=== PATIENT | female | born 1950 | race Caucasian/White ===

== ENCOUNTER → 2017-09-06 11:25 | Outpatient (CLI) | payer MEDICARE, SELFPAY ==
[2017-09-06 13:15] LABS: Absolute Lymphocyte Count 2.05 X10^3/ul (0.83-4.51); Absolute Neutrophil Count 5.2 X10^3/uL (2.0-7.7); Basophil# 0.04 X10^3/uL; Basophil% 0.5 % (0-1); Eosinophil# 0.55 X10^3/uL; Eosinophils% 6.5 % (0-5); Hematocrit 36.6 % (37-47); Hemoglobin 12.2 g/dl (12.0-15.0); Lymphocyte # 2.05 X10^3/ul (4.0); Lymphocyte % 24.3 % (19-41); Mean Corp Hgb Conc 33.3 g/gl (32-36); Mean Corpuscular Volume 89.9 fL (81-99); Monocyte# 0.61 X10^3/uL; Monocyte% 7.2 % (0-10); Neutrophil # 5.17 X10^3/uL (2.7-7.7); Neutrophil % 61.3 % (47-70); POSITIVE COUNT NO; POSITIVE DIFFERENTIAL NO; POSITIVE MORPHOLOGY NO; Platelet Count 349 K/mm3 (150-450); RBC Distribution Width CV 13.7 % (11.6-14.6); RBC Distribution Width SD 44.7 fl (35.1-43.9); Red Blood Count 4.07 M/mm3 (4.2-5.4); White Blood Count 8.4 K/mm3 (4.4-11.0)
[2017-09-06 13:32] LABS: Vitamin D,25 Hydroxy 19.4 ng/mL (29.95-100.01)
[2017-09-06 13:53] LABS: ALB/GLOB Ratio 0.7 RATIO (0.9-2.4); AST(SGOT) 25 U/L (15-37); Alanine Aminotransfer ALT/SGPT 25 U/L (13-56); Albumin, Serum 2.7 g/dL (3.2-5.0); Alkaline Phosphatase 98 U/L (45-117); Anion Gap 9 (5-15); BUN 31 mg/dL (7-18); BUN/Creat Ratio 13.4 RATIO (10-20); Calcium,Total 8.7 mg/dL (8.5-10.1); Chloride 107 mmol/L (98-107); Creatinine, Serum 2.31 mg/dL (0.55-1.02); EST Glomerular Filtration Rate 22 mL/min (>60); Est Glom Filt Rate - Afr Amer 27 mL/min (>60); Globulin 4.1 g/dL (2.2-4.2); Glucose 167 mg/dL (74-106); Potassium 4.9 mmol/L (3.5-5.1); Protein, Total 6.8 g/dL (6.4-8.2); Sodium Level 139 mmol/L (136-145); Thyroid Stim Hormone (TSH) 3.16 uIU/mL (0.358-3.74)
== END ==
PROVIDERS: Family Provider Family Medicine Geriatric Medicine; PCP Family Medicine Geriatric Medicine; Visit Provider Family Medicine Geriatric Medicine
DX: E11.9 Type 2 diabetes mellitus without complications (principal); E55.9 Vitamin D deficiency, unspecified; I10 Essential (primary) hypertension
CPT/HCPCS: 36415; 80053; 82306; 84443; 85025

== ENCOUNTER → 2018-01-01 15:43 | Outpatient (CLI) | payer MEDICARE, SELFPAY ==
[2018-01-01 17:35] LABS: Absolute Lymphocyte Count 2.22 X10^3/ul (0.83-4.51); Absolute Neutrophil Count 7.3 X10^3/uL (2.0-7.7); Basophil# 0.05 X10^3/uL; Basophil% 0.4 % (0-1); Eosinophils% 15.5 % (0-5); Hematocrit 35.2 % (37-47); Hemoglobin 11.3 g/dl (12.0-15.0); Lymphocyte # 2.22 X10^3/ul (4.0); Lymphocyte % 18.1 % (19-41); Mean Corp Hgb Conc 32.1 g/gl (32-36); Mean Corpuscular Hgb 28.9 pg (27.0-32.0); Mean Platelet Vol. 8.7 fl (6.2-12.0); Monocyte# 0.83 X10^3/uL; Monocyte% 6.8 % (0-10); Neutrophil # 7.27 X10^3/uL (2.7-7.7); Platelet Count 343 K/mm3 (150-450); RBC Distribution Width CV 13.6 % (11.6-14.6); RBC Distribution Width SD 44.5 fl (35.1-43.9); Red Blood Count 3.91 M/mm3 (4.2-5.4); White Blood Count 12.3 K/mm3 (4.4-11.0)
[2018-01-01 17:40] LABS: POSITIVE COUNT NO; POSITIVE DIFFERENTIAL NO; POSITIVE MORPHOLOGY NO
[2018-01-01 18:01] LABS: Vitamin D,25 Hydroxy 32.7 ng/mL (29.95-100.01)
[2018-01-01 18:30] LABS: ALB/GLOB Ratio 0.6 RATIO (0.9-2.4); AST(SGOT) 28 U/L (15-37); Alanine Aminotransfer ALT/SGPT 19 U/L (13-56); Albumin, Serum 2.5 g/dL (3.2-5.0); Alkaline Phosphatase 93 U/L (45-117); Anion Gap 5 (5-15); BUN 32 mg/dL (7-18); Calcium,Total 8.2 mg/dL (8.5-10.1); Chloride 105 mmol/L (98-107); Creatinine, Serum 2.14 mg/dL (0.55-1.02); EST Glomerular Filtration Rate 24 mL/min (>60); Est Glom Filt Rate - Afr Amer 29 mL/min (>60); Globulin 4.5 g/dL (2.2-4.2); Glucose 136 mg/dL (74-106); Potassium 5.2 mmol/L (3.5-5.1); Sodium Level 137 mmol/L (136-145); Thyroid Stim Hormone (TSH) 2.67 uIU/mL (0.358-3.74)
== END ==
PROVIDERS: Family Provider Family Medicine Geriatric Medicine; PCP Family Medicine Geriatric Medicine; Visit Provider Family Medicine Geriatric Medicine
DX: E11.9 Type 2 diabetes mellitus without complications (principal); E55.9 Vitamin D deficiency, unspecified; I10 Essential (primary) hypertension; N39.0 Urinary tract infection, site not specified
CPT/HCPCS: 36415; 80053; 82306; 84443; 85025; 87086; 87088

== ENCOUNTER → 2018-01-05 15:29 | Outpatient (CLI) | payer MEDICARE, SELFPAY ==
[2018-01-05 16:28] LABS: Anion Gap 13 (5-15); BUN 38 mg/dL (7-18); Calcium,Total 8.2 mg/dL (8.5-10.1); Chloride 106 mmol/L (98-107); Creatinine, Serum 2.38 mg/dL (0.55-1.02); EST Glomerular Filtration Rate 22 mL/min (>60); Est Glom Filt Rate - Afr Amer 26 mL/min (>60); Glucose 111 mg/dL (74-106); Potassium 4.6 mmol/L (3.5-5.1); Sodium Level 140 mmol/L (136-145)
== END ==
PROVIDERS: Family Provider Family Medicine Geriatric Medicine; PCP Family Medicine Geriatric Medicine; Visit Provider Family Medicine Geriatric Medicine
DX: E87.6 Hypokalemia (principal)
CPT/HCPCS: 36415; 80048

== ENCOUNTER → 2018-01-11 14:40 | Outpatient (CLI) | payer MEDICARE, SELFPAY ==
[2018-01-11 17:41] LABS: Protein, Urine (Random) 167.2 mg/dL (<11.9); Protein:Creat Ratio 1995 mg/g CRE (0-200)
== END ==
PROVIDERS: Family Provider Family Medicine Geriatric Medicine; PCP Family Medicine Geriatric Medicine; Visit Provider Internal Medicine Nephrology
DX: E11.21 Type 2 diabetes mellitus with diabetic nephropathy (principal)
CPT/HCPCS: 82570; 84156

== ENCOUNTER → 2018-01-16 13:48 | Outpatient (CLI) | payer MEDICARE, SELFPAY ==
[2018-01-16 16:14] LABS: Albumin, Serum 2.2 g/dL (3.2-5.0); BUN 42 mg/dL (7-18); BUN/Creat Ratio 18.2 RATIO (10-20); Calcium,Total 8.1 mg/dL (8.5-10.1); Chloride 105 mmol/L (98-107); Creatinine, Serum 2.31 mg/dL (0.55-1.02); EST Glomerular Filtration Rate 22 mL/min (>60); Est Glom Filt Rate - Afr Amer 27 mL/min (>60); Glucose 178 mg/dL (74-106); Phosphorus 3.7 mg/dL (2.5-4.9); Potassium 4.4 mmol/L (3.5-5.1); Sodium Level 138 mmol/L (136-145)
== END ==
PROVIDERS: Internal Medicine Nephrology; Family Provider Family Medicine Geriatric Medicine; PCP Family Medicine Geriatric Medicine; Visit Provider Family Medicine Geriatric Medicine
DX: N18.4 Chronic kidney disease, stage 4 (severe) (principal); R10.9 Unspecified abdominal pain; N39.0 Urinary tract infection, site not specified; N17.9 Acute kidney failure, unspecified
CPT/HCPCS: 36415; 74176; 80069; 87077; 87086; 87088

== ENCOUNTER → 2018-01-17 09:08 | Outpatient (CLI) | payer MEDICARE, SELFPAY ==
[2018-01-17 13:09] LABS: International Normalized Ratio 1.1; Prothrombin Time (Protime)PT. 13.7 SECONDS (11.7-14.9)
[2018-01-17 13:10] LABS: Partial Thromboplast Time 33.7 Seconds (24.1-36.2)
[2018-01-17 13:17] LABS: Anion Gap 9 (5-15); BUN 41 mg/dL (7-18); BUN/Creat Ratio 17.5 RATIO (10-20); Calcium,Total 7.9 mg/dL (8.5-10.1); Chloride 108 mmol/L (98-107); Creatinine, Serum 2.34 mg/dL (0.55-1.02); EST Glomerular Filtration Rate 22 mL/min (>60); Est Glom Filt Rate - Afr Amer 27 mL/min (>60); Glucose 240 mg/dL (74-106); Potassium 4.7 mmol/L (3.5-5.1); Sodium Level 137 mmol/L (136-145)
[2018-01-18 11:35] LABS: Cancer Antigen 125 47.2 U/mL (0.0-38.1)
== END ==
PROVIDERS: Family Provider Family Medicine Geriatric Medicine; PCP Family Medicine Geriatric Medicine; Visit Provider Family Medicine Geriatric Medicine
DX: Z01.818 Encounter for other preprocedural examination (principal); Z13.89 Encounter for screening for other disorder; N18.3 Chronic kidney disease, stage 3 (moderate)
CPT/HCPCS: 36415; 80048; 85610; 85730; 86304

== ENCOUNTER → 2018-01-19 09:35 | Outpatient (CLI) | payer MEDICARE, SELFPAY ==
--- NOTE | 2018-01-19 10:00 | MRI_ITS ---
STUDY: MRI LUMBAR SPINE WITHOUT CONTRAST REASON FOR EXAM: Female, 67 years old. low back pain radiates into anterior hips x 1 month. TECHNIQUE: Standardized fat and water weighted pulse sequences were obtained in the sagittal and axial planes. COMPARISON: None FINDINGS: T12-L1: Normal endplates. Normal disc height, hydration and morphology. Normal bilateral facet joints. Normal central canal and bilateral lateral recesses. Normal bilateral intervertebral neural foramina. Normal lumbar lordosis. There is no substantial scoliosis. Normal conus medullaris that terminates at the L1 L1-2: There is mild disc space narrowing and endplate spondylosis. There is a mild disc bulge and facet arthropathy without significant central canal or foraminal stenosis. L2-3: Normal endplates. Normal disc height, hydration and morphology. Normal bilateral facet joints. Normal central canal and bilateral lateral recesses. Normal bilateral intervertebral neural foramina. L3-4: There is minimal disc space narrowing and endplate spondylosis. There is a mild disc bulge and facet arthropathy without significant central canal stenosis. There is minimal bilateral foraminal stenosis. L4-5: There is minimal disc space narrowing and endplate spondylosis. There is extensive facet arthropathy with minimal anterolisthesis and mild disc bulge without significant central canal or foraminal stenosis. L5-S1: There is mild disc space narrowing and endplate spondylosis. There is a mild disc bulge with central protrusion and facet arthropathy without significant central canal stenosis. There is mild bilateral foraminal stenosis. Normal visualized sacral ala. Normal visualized paraspinous soft tissue structures. MRI/Spine Lumbar (Routine) IMPRESSION: L4/L5: Facet arthropathy with grade 1 anterolisthesis. Electronically Signed: Jenna Valderrama MD at 11:27 EDT Tel , Service support ,
== END ==
PROVIDERS: Family Provider Family Medicine Geriatric Medicine; PCP Family Medicine Geriatric Medicine; Visit Provider Family Medicine Geriatric Medicine
DX: M54.5 Low back pain (principal); N83.8 Other noninflammatory disorders of ovary, fallopian tube and broad ligament
CPT/HCPCS: 72148; 76830; 76856

== ENCOUNTER → 2018-01-22 07:57 | Outpatient (CLI) | payer MEDICARE, SELFPAY ==
[2018-01-22] VITALS (9 sets, daily range): BP systolic 163–213; BP diastolic 45–122; PULSE 72–90; RESP 15–25; O2SAT 89–100; BMI 31.3
--- NOTE | 2018-01-22 | ASPIGT_PTH ---
PATIENT: SIMEON STAPLETON LOC: CT U#:[id number] AGE/SX: 74/F ROOM: RE01/22/[address]: Dr. 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 See comment. SAFIA:marisol 9/11/18 COMMENT The specimen is evaluated at the time of CT by Dr. Hoover. Immediate Evaluation = Malignant cells present derived from non-small cell carcinoma. The tumor shows extensive necrosis. Immunohistochemistry ([id number]) supports the above diagnosis. Correlation with Clinical, radiologic findings and appropriate follow up are necessary. Case has been reviewed in consultation with Dr. Mas who concurs with the above diagnosis. IDC:AM MICROSCOPIC DESCRIPTION Slides are reviewed. GROSS DESCRIPTION Received in fixative is one container labeled with the patient's name and designated left retro-peritoneum. The specimen consists of multiple irregular fragments of cook soft tissue that in aggregate measure 2 x 0.1 x 0.1 cm. The entire specimen is submitted in one cassette. Two touch imprints are prepared at the time of core biopsy. / SAFIA:marisol 01/22/18 TC:0 CPT: 44072, 02900
--- NOTE | 2018-01-22 | IMM_PTH ---
PATIENT: SIMEON STAPLETON LOC: CT U#:[id number] AGE/SX: 74/F ROOM: RE01/22/[address]: Dr. Nii Mc MD : 1950 BED: DIS: SPEC #: [id number] RECD: 01/23/18 11:04 STATUS: YUNIER REQ #: [id number] KELLY: 01/22/18 00:[address]: Nii Mc Chi DEPT: IMMUNOHISTOCHEMISTRY RECD BY: Radha Villegas Tissues: Retroperitoneum, NOS Procedures: RCC (add) MSH2 (add) MLH-1 (add) MSH6 (add) Anti-PMS2 (add) NAPSIN A (add) CA-125 (add) CK20 (add) CK5-6 (add) CK7 (add) CK8 (add) STEPHENS-2 (add) HEP PAR (add) KI-67 (add) P53 (add) NM (add) TTF1 (add) P40 (add) ER (initial) PHYSICIAN & [address] [address] SPECIMEN INFORMATION: Tissue Source: Left retroperitoneal mass Clinical Info: Left retroperitoneal mass Specimen Number: [id number] CPT code: 89880, 16947 x18 METHODOLOGY: Deparaffinized sections of prefer/formalin-fixed tissue or PAP/DQ stained slides are incubated with monoclonal/polyclonal antibodies/oligonucleotide probes. Localization is made via biotin free immunoperoxidase method. Appropriate controls are performed and reacted as expected. Results on target cell population are indicated in the following table: RESULTS: ANTIBODY / CLONE RESULT ER (6F11) negative NM (1E2) negative CK7 (OV-TL12/30) negative CK8 (82wkqsD40) positive CK20 (KS20.8) positive TTF-1 (8G7G3/1) negative Napsin A (Rabbit Polyclonal) negative HepPar (OCh1E5) negative RCC (PN-15) negative CA125 (OC125) negative CK5-6 (D5 & 1684) negative P40 (BC28) negative COLON CANCER PROFILE (Prognostic Markers) Ki-67 (30-9) positive, high P53 (DO-7) negative MSH2 (25D12) positive MSH6 (44) positive MLH-1 (M1) positive PMS2 (PEO0140) positive STEPHENS-2 (SP21) positive These tests were developed and their performance characteristics determined by [facility]. They may not have been cleared or approved by the U.S. Food and Drug Administration. The FDA has determined that such clearance or approval is not necessary. 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 Clinical correlation is necessary. Result of Microsatellite Instability Study: Negative (no loss of mismatch protein; no microsatellite instability detected). Case has been reviewed in consultation with Dr. Mas who concurs with the above diagnosis. IDC:RALPH SJ:marisol 01/24/18
== END ==
PROVIDERS: Family Provider Family Medicine Geriatric Medicine; PCP Family Medicine Geriatric Medicine; Visit Provider Family Medicine Geriatric Medicine
DX: R59.0 Localized enlarged lymph nodes (principal); M51.86 Other intervertebral disc disorders, lumbar region; E11.22 Type 2 diabetes mellitus with diabetic chronic kidney disease; I12.9 Hypertensive chronic kidney disease with stage 1 through stage 4 chronic kidney disease, or unspecified chronic kidney disease; N18.4 Chronic kidney disease, stage 4 (severe); K59.00 Constipation, unspecified; E11.40 Type 2 diabetes mellitus with diabetic neuropathy, unspecified; Z87.448 Personal history of other diseases of urinary system; Z79.84 Long term (current) use of oral hypoglycemic drugs; Z79.899 Other long term (current) drug therapy
CPT/HCPCS: 49180; 77012; 88172; 88305; 88313; 88341; 88342; 99156; 99157; J7040; A4216

== ENCOUNTER → 2018-01-30 11:58 | Outpatient (CLI) | payer MEDICARE, SELFPAY ==
--- NOTE | 2018-01-30 12:03 | VDLE_ITS ---
Reason For Study: pain, swelling RIGHT LEFT GSV is normal. GSV is normal. CFV is compressible, spontaneous, phasic, CFV is compressible, spontaneous, phasic, competent and demonstrates normal competent, and demonstrates normal augmentation. augmentation. FV is compressible, spontaneous, phasic, FV is compressible, spontaneous, phasic, competent and demonstrates normal competent and demonstrates normal augmentation. augmentation. POP V is compressible, spontaneous, phasic, POP V is compressible, spontaneous, phasic, competent and demonstrates normal competent and demonstrates normal augmentation. augmentation. T/P Trunk is compressible. T/P Trunk is compressible. PTV is compressible. PTV is compressible. RT PerV is compressible. LT PerV is compressible. Interpretation Summary Deep veins of the lower extremities are bilaterally patent and compressible segmentally. There is no evidence of deep vein thrombosis on either side. Valvular competence appears intact within the proximal deep venous systems bilaterally. The greater saphenous veins appear bilaterally patent and compressible segmentally. Ordering Physician: Jayy Alvarez Performed By: Carlo Saldana RVT
== END ==
PROVIDERS: Family Provider Family Medicine Geriatric Medicine; PCP Family Medicine Geriatric Medicine; Visit Provider Internal Medicine Medical Oncology
DX: R22.42 Localized swelling, mass and lump, left lower limb (principal); M79.606 Pain in leg, unspecified
CPT/HCPCS: 93970

== ENCOUNTER → 2018-02-01 16:41 | Outpatient (CLI) | payer MEDICARE, SELFPAY ==
--- NOTE | 2018-02-01 16:51 | CT_ITS ---
STUDY: CT CHEST WITHOUT CONTRAST REASON FOR EXAM: Female, 67 years old. Pelvic pain and swelling, history of uterine mass RADIATION DOSAGE (If Supplied By Facility): CTDIvol = ( 12.76 ) mGy, DLP = ( 423.99 ) mGycm TECHNIQUE: Transaxial imaging was performed without the administration of intravenous contrast material. Individualized dose optimization techniques were used for this CT. COMPARISON: Previous plain films FINDINGS: The soft tissue windows show normal-appearing thyroid gland. There are scattered subcentimeter axillary and mediastinal lymph nodes. There are calcified mediastinal lymph nodes. There are calcified coronary vessels. There are free-flowing bilateral pleural effusions, right greater than left with associated atelectasis. The lung windows show chronic interstitial changes in both lung kumar without an organized infiltrate or suspicious noncalcified mass or nodule. Limited cuts through the upper abdomen do not show a suspicious abnormality. Bony structures show degenerative change with multiple anterior spurs CT/Chest without Contrast IMPRESSION: Free-flowing bilateral pleural effusions with associated atelectasis. Right greater than left. No superimposed infiltrate or suspicious noncalcified mass or nodule. Calcified coronary vessels Scattered subcentimeter axillary and mediastinal lymph nodes. There are calcified mediastinal lymph nodes as well. Degenerative bony changes Electronically Signed: Armaan Sosa MD at 17:54 EDT , Service support ,
[2018-02-01 17:37] LABS: Anion Gap 11 (5-15); BUN 71 mg/dL (7-18); BUN/Creat Ratio 21.3 RATIO (10-20); Calcium,Total 8.1 mg/dL (8.5-10.1); Chloride 103 mmol/L (98-107); Creatinine, Serum 3.34 mg/dL (0.55-1.02); EST Glomerular Filtration Rate 15 mL/min (>60); Est Glom Filt Rate - Afr Amer 18 mL/min (>60); Glucose 163 mg/dL (74-106); Potassium 4.2 mmol/L (3.5-5.1); Sodium Level 134 mmol/L (136-145)
== END ==
PROVIDERS: Internal Medicine Nephrology; Family Provider Family Medicine Geriatric Medicine; PCP Family Medicine Geriatric Medicine; Visit Provider Internal Medicine Medical Oncology
DX: N85.8 Other specified noninflammatory disorders of uterus (principal); R19.09 Other intra-abdominal and pelvic swelling, mass and lump; N17.9 Acute kidney failure, unspecified
CPT/HCPCS: 36415; 71250; 80048

== ENCOUNTER 2018-02-04 20:45 | Inpatient (IN) | payer MEDICARE, SELFPAY ==
[2018-02-04 20:46] VITALS: BP 142/66; PULSE 103; RESP 19; TEMP 36.6; O2SAT 98; BMI 30.4
--- NOTE | 2018-02-04 21:47 | CT_ITS ---
STUDY: CT ABDOMEN AND PELVIS WITHOUT CONTRAST REASON FOR EXAM: Female, 67 years old. Abdominal pain, constipation. RADIATION DOSAGE (If Supplied By Facility): CTDIvol = ( 17.86 ) mGy, DLP = ( 901.29 ) mGycm TECHNIQUE: Transaxial images were obtained from the dome of the diaphragm to the symphysis pubis without oral contrast, and without intravenous contrast. Sagittal and coronal images were reconstructed. Individualized dose optimization techniques were used for this CT. COMPARISON: Pelvic ultrasound January 19, 2018; CT abdomen and pelvis January 16, 2018. FINDINGS: There is a small to moderate-sized dependent right pleural effusion and small left pleural effusion, both increased in size since January 16, 2018. There is subsegmental atelectasis in the adjacent posterior lung bases. The heart size is normal. Very small inferior pericardial effusion or thickening is stable. Atherosclerotic calcification again seen in the coronary arteries. There is decreased attenuation of the liver consistent with steatosis. The portal vein diameter is 13.5 mm. Normal gallbladder and extrahepatic biliary system. Common bile duct diameter near the juan ramon hepatis is 9 mm, then taper normally as it passes through the head of the pancreas. Normal spleen. Normal pancreas. Normal bilateral adrenal glands. There is stable to slightly worsened right hydroureteronephrosis down to the pelvic inlet, and early distention of the left collecting system. No defined focal renal mass or cyst. There is stable moderate stranding of the perinephric tissues. Normal visualized stomach. Normal small intestine. There are several stable colonic diverticula consistent with diverticulosis. There is non-visualization of the appendix. There are central mesenteric lymph nodes ranging from nonspecific subcentimeter size to borderline enlarged. There is stable moderate atherosclerotic calcification of the abdominal aorta proximal iliac arteries, without a demonstrated aneurysm. Normal inferior vena cava. There is stable enlarged retroperitoneal lymph nodes, most prominent in the left periaortic soft tissues. There is mild mural thickening in the dome and left wall of the urinary bladder compared to the right wall or base of the bladder. Normal visualized uterus. The right ovary is 4.95 x 3.55 x 3.5 cm, and contains at least 2 laterally defined low density cystic structures. The larger of these is 3.3 x 3.25 x 2.4 cm. The cysts are by a faintly calcified septation, and a rounded subcentimeter rim calcification is also seen at the anterior margin of the ovary. Left adnexa is unremarkable. There are stranding soft tissue densities of worsened edema or ecchymosis in the subcutaneous tissues of the abdominal and pelvic eaton, most prominent laterally and posteriorly. There is a left-sided inguinal hernia containing adipose tissue. There are stable multilevel degenerative changes of the visualized thoracic spine and lower lumbar spine. Mildly patchy density of the vertebrae could reflect demineralization versus other infiltrating process. CT/Abdomen/Pelvis without Cont IMPRESSION: 1. An expected volume of fecal material, partially opacified by contrast from earlier study, fills the colon. There is diverticulosis without acute articularis. No sign of bowel obstruction. The appendix is not visualized. 2. Retroperitoneal adenopathy again identified. Mesenteric lymph nodes also now range from nonspecific subcentimeter size to borderline enlarged. 3. There is slight worsened right hydroureteronephrosis and minor distention of the left collecting system down to the pelvic inlet. Moderate stranding of the perinephric soft tissues is unchanged. 4. Stable mild mural thickening in the dome and left wall of the urinary bladder, which could reflect regional cystitis or other infiltrative process. 5. Stable complicated cystic structure(s) in the right ovary. The uterus and left ovary are unremarkable. 6. Worsened edema or ecchymosis in the subcutaneous tissues of the abdominal pelvic eaton, most prominent laterally and posteriorly. 7. Worsened bilateral pleural effusions, larger on the right, with subsegmental atelectasis in the adjacent lung bases. There is stable small inferior pericardial effusion or thickening. 8. Atherosclerotic vascular calcifications again noted. No demonstrated aortic aneurysm. 9. Hepatic steatosis. 10. Mildly patchy density of the vertebrae could reflect demineralization versus other infiltrative process. Electronically Signed: Armaan Reyes MD at 23:14 EDT , Service support ,
[2018-02-04] MEDS: Ondansetron 4 MG/2 ML Vial IV (22:05)
[2018-02-04] MEDS: 0.9% Normal Saline 1,000 ML 1000 ML IV (22:05)
[2018-02-04] MEDS: Morphine 4 MG/ML Syringe IV (22:05)
[2018-02-04 22:45] LABS: Absolute Lymphocyte Count 0.62 X10^3/ul (0.83-4.51); Absolute Neutrophil Count 7.2 X10^3/uL (2.0-7.7); Basophil# 0.02 X10^3/uL; Basophil% 0.2 % (0-1); Eosinophil# 0.22 X10^3/uL; Eosinophils% 2.5 % (0-5); Hematocrit 34.2 % (37-47); Hemoglobin 11.3 g/dl (12.0-15.0); Lymphocyte # 0.62 X10^3/ul (4.0); Lymphocyte % 7.2 % (19-41); Mean Corpuscular Hgb 28.6 pg (27.0-32.0); Mean Corpuscular Volume 86.6 fL (81-99); Monocyte# 0.62 X10^3/uL; Monocyte% 7.2 % (0-10); Neutrophil # 7.16 X10^3/uL (2.7-7.7); Neutrophil % 82.8 % (47-70); Platelet Count 433 K/mm3 (150-450); RBC Distribution Width CV 13.1 % (11.6-14.6); Red Blood Count 3.95 M/mm3 (4.2-5.4); White Blood Count 8.7 K/mm3 (4.4-11.0)
[2018-02-04 22:46] LABS: POSITIVE COUNT NO; POSITIVE DIFFERENTIAL NO; POSITIVE MORPHOLOGY NO
[2018-02-04 22:58] LABS: ALB/GLOB Ratio 0.3 RATIO (0.9-2.4); AST(SGOT) 29 U/L (15-37); Alanine Aminotransfer ALT/SGPT 16 U/L (13-56); Albumin, Serum 1.4 g/dL (3.2-5.0); Alkaline Phosphatase 151 U/L (45-117); Anion Gap 10 (5-15); BUN 76 mg/dL (7-18); BUN/Creat Ratio 21.2 RATIO (10-20); Chloride 101 mmol/L (98-107); Creatinine, Serum 3.59 mg/dL (0.55-1.02); EST Glomerular Filtration Rate 13 mL/min (>60); Est Glom Filt Rate - Afr Amer 16 mL/min (>60); Estimated Creatinine Clearance 12.77 ml/min; Globulin 4.6 g/dL (2.2-4.2); Glucose 182 mg/dL (74-106); Lipase 124 U/L (73-393); Potassium 3.7 mmol/L (3.5-5.1); Sodium Level 134 mmol/L (136-145)
[2018-02-04 23:01] VITALS: PULSE 90; RESP 16; O2SAT 97
[2018-02-04] MEDS: proMETHazine 25 MG/ML Syringe 6.25 MG IV (23:02)
--- NOTE | 2018-02-04 23:40 | HP.PCM_ITS ---
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 She presents to the ER because she cant handle the pain anymore. She was recently diagnosed with Stage 4 adenocarcinoma of the colon and retroperitoneal lymphadenopathy. She describes her pain as her uterus and ovary are on fire. She had been scheduled to see an DRAGLINE OPERATOR in [place] prior to the diagnosis of cancer and after she was diagnosed with cancer, she kept her appointment and the OB attempted a speculum exam/pelvic, however she was having too much pain and could not tolerate it. CT abd/pelvis in the ER did not show anything acute other than the cancer. She also has lower extremity edema that was recently worked up and negative for a DVT. She denies any diarrhea, or vomiting, but she does have nausea. At home, she currently only takes Oxycontin BID for her pain control. Past Medical History Past Medical History (Chronic Problems): Chronic Problems (Last Updated 01/30/18 @ 09:59 by Mariia Geller) Hypertension (Chronic) Hypothyroid (Chronic) Hyperlipemia (Chronic) Chronic back pain (Chronic) DM type 2 (diabetes mellitus, type 2) (Chronic) CKD (chronic kidney disease) (Chronic) Medical History: Medical History (Last Updated 01/30/18 @ 09:59 by Mariia Geller) CT guided biopsy Left retroperitoneal lymph node biopsy 01/22/18 [facility] Allergies codeine Allergy (Verified 02/04/18 20:46) Other iodine Allergy (Verified 02/04/18 20:46) Other Penicillins Allergy (Verified 02/04/18 20:46) Hives PAPER TAPE Allergy (Uncoded 02/04/18 20:46) Rash Home Medications: Ambulatory Orders Medication Instructions Recorded Oxycodone CR [Oxycontin] 10 mg PO Q12H 02/04/18 Oxycodone CR [Oxycontin] 10 mg PO TID 02/04/18 Surgical History: Surgical History (Last Updated 01/30/18 @ 09:59 by Mariia Geller) H/O dilation and curettage Z98.890 Surgical History: - - myomectomy, 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: No pertinent 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 Smoking Status: Former smoker Alcohol: None Drugs: None - *Family History Sibling Family History: Family History (Last Updated 01/30/18 @ 10:00 by Mariia Geller) Sister Cancer Father Cancer Grandmother Diabetes History Items: No pertinent history Offspring Family History: Family History (Last Updated 01/30/18 @ 10:00 by Mariia Geller) Sister Cancer Father Cancer Grandmother Diabetes History Items: Cancer - Lymphoma Review of Systems Constitutional: Denies: Chills, Fever, Weight Change HEENT: Denies: Head Aches, Sinus Congestion, Sinus Drainage Cardiovascular: Denies: Chest Pain, Palpitations Respiratory: Denies: Cough, Shortness of breath at rest, Sputum production Gastrointestinal: Reports: Abdominal Pain. Denies: Nausea, Vomiting Genitourinary: Reports: Dysuria Gynecological: Reports: - - Pelvic pain Musculoskeletal: Denies: Joint Pain, Joint Tenderness Skin: Denies: Rash, Wounds Neurological: Denies: Numbness, Tingling, Focal weakness Psychiatric: Denies: Anxiety, Depression Hematologic/ Lymphatic: Denies: Easy Bruising, Easy Bleeding VTE Information - Inpt Only VTE Present on Admission: No - Physical Exam General: Alert, Oriented x3, Cooperative HEENT: Atraumatic, PERRLA, EOMI, Normocephalic Oral: Moist Mucosa Neck: Supple, No JVD Lungs: Clear to auscultation, Normal air movement, No rhonchi, No wheeze, No rales Cardiovascular: Regular rate, Regular Rhythm, Normal S1, Normal S2, No murmurs Abdomen: Soft, Non Tender, Non-Distended, No Hepato-splenomegaly Extremities: Capillary Refill Less than 3 Seconds, Edema - pitting 1+ Skin: No rashes, No breakdown Musculoskeletal: No Tenderness to Palpation of Joints or Extremities Neurological: Neuro grossly intact, Sensory exam intact to light touch and pain Psych/Mental Status: Normal Affect, Appropriate Vital Signs Temp Pulse Resp BP Pulse Ox 97.8 F 90 16 142/66 H 97 02/04/18 20:46 02/04/18 23:01 02/04/18 23:01 02/04/18 20:46 02/04/18 23:01 Oxygen Delivery Method Room Air Weight: 177 lb 3.491 oz Body Mass Index (BMI) 30.4 Finger Stick Blood Glucose 181 Laboratory Tests Past 24 Hrs 02/04/18 02/04/18 22:10 22:10 WBC 8.7 RBC 3.95 L Hgb 11.3 L Hct 34.2 L MCV 86.6 MCH 28.6 MCHC 33.0 RDW 13.1 RDW Differential 42.0 Plt Count 433 MPV 8.0 Immature Gran % (Auto) 0.100 Neut % (Auto) 82.8 H Lymph % (Auto) 7.2 L [place] % (Auto) 7.2 Eos % (Auto) 2.5 Baso % (Auto) 0.2 Absolute Neuts (auto) 7.2 Absolute Lymphs (auto) 0.62 L Total Counted Not Reportable Sodium 134 L Potassium 3.7 Chloride 101 Carbon Dioxide 23.0 Anion Gap 10 BUN 76 H Creatinine 3.59 H Estim Creat Clear Calc 12.77 Est GFR (MDRD) Af Amer 16 L Est GFR (MDRD) Non-Af 13 L BUN/Creatinine Ratio 21.2 H Glucose 182 H Calcium 8.0 L Total Bilirubin 0.30 AST 29 ALT 16 Alkaline Phosphatase 151 H Total Protein 6.0 L Albumin 1.4 L Globulin 4.6 H Albumin/Globulin Ratio 0.3 L Lipase 124 Assessment/Plan All Active Problems (Last Updated 01/30/18 @ 09:59 by Mariia Geller) Abscess and cellulitis (Acute) Back pain (Acute) Vomiting (Acute) Metastatic adenocarcinoma (Acute) 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 Stage 4 adenocarcinoma of the colon/Pelvic/abdominal pain/Nausea - CEA is elevated to 418 and her CA125 was 47 - C/s to Dr Alvarez who is her oncologist - C/w her OXycontin BID and add oxycodone 5 mg q4 prn - IVF@125 - Unsure of the benefit at this time for a OB consult if she cannot tolerate a pelvic exam - Bowel regimen with colace and miralax - Phenergan for the nausea 2. Right Hydronephrosis/CKD4 - Appears slightly worse on todays CT - Her description and the location of the pain is not consistent with the hydronephrosis as the source - Per the ER, urology did not feel that they would be able to stent the ureter d /t the ovarian cyst/mass and colon cancer - Her CKD is worse presumably from the worsening hydro but could also be dehydration - Continue to monitor 3. DM2 - she does not take anything and her previous A1c was 7.4 - SSI for coverage DVT: Heparin/SCD Diet: Regular Code Visit Inpatient E&M: 42945 Init Hosp L3
--- NOTE | 2018-02-04 23:41 | ED.VISSUMM ---
- ER Visit Summary Date of Service: 02/04/18 Chief Complaint: Abdominal pain History of Present Illness: The patient is a 67 F who presents with abdominal pain. She was recently diagnosed with stage IV colon cancer. She has had abdominal pain for months but this is been particularly worse in the last 3-4 weeks. She is on long-acting oxycodone at home but states her pain remains uncontrolled. She has had some constipation. She complains of nausea but no vomiting. She had a very small bowel movement this morning. She reports generalized weakness and decreased oral intake. She also has increasing shortness of breath. Physical Examination: Afebrile initial heart rate 103 Moist mucous membranes Heart regular rhythm tachycardia Lungs are clear Abdomen soft nondistended she has diffuse nonfocal abdominal tenderness without guarding or rebound Alert Test Results: Labs notable for hemoglobin 11.3. BUN of 76, creatinine of 3.59. Liver function lipase unremarkable. CT of the abdomen pelvis shows retroperitoneal and mesenteric lymphadenopathy and worsening right hydroureteronephrosis and worsening bilateral pleural effusions and subcutaneous abdominal wall edema. Emergency Department Course and Treatment: Patient's creatinine has been persistently slowly worsening over the past month. She also has some hydroureteronephrosis. She has been referred to urology who states she was not a candidate for a ureteral stent. She has been treated here with IV fluids morphine Zofran and then Phenergan. I do believe she will need admitted due to worsening renal function for nephrology and/or urology consultations and hydration. She will also need admitted for pain control. I spoke to the hospitalist and patient admitted to a medical floor. Treatment Plan: [] Disposition: Admit Impression: Abdominal pain Colon cancer Acute kidney injury This note was generated with [employer] dictation software. It may contain incorrect words, spelling, and punctuation that were not noted in review of the chart prior to signing ED Disposition - Plan for ED Patient: Chief Complaint: Abd Pain Referrals: Nii Mc Chi, MD [Primary Care Provider] -
[2018-02-04 23:54] VITALS: BP 170/78; PULSE 82; RESP 16; O2SAT 97
[2018-02-05] VITALS (8 sets, daily range): BP systolic 163–177; BP diastolic 67–78; PULSE 79–84; RESP 16–18; TEMP 36.7–37.1; O2SAT 95–99; BMI 30.8
[2018-02-05] MEDS: oxyCODONE HCl Cr 10 MG Tablet PO ×3 (01:21→21:05)
[2018-02-05] MEDS: proMETHazine 25 MG/ML Syringe 12.5 MG IV ×2 (01:21→07:16)
[2018-02-05] MEDS: 0.9% Normal Saline 1,000 ML 125 ML IV ×3 (01:22→18:07)
[2018-02-05 04:42] LABS: Red Blood Cells-Urine 0 SEEN /hpf (0-5)
[2018-02-05 05:47] LABS: Color, Urine Yellow (Yellow); Glucose, Dipstick 50 mg/dl (Normal); Ketone-Dipstick Negative (Negative); Leukocyte Esterase-Dipstick 25 /ul (Negative); Nitrite-Dipstick Negative (Negative); Occult Blood-Urine 10 /ul (Negative); Protein-Dipstick 100 mg/dl (Negative); Urine Bilirubin Dipstick Negative (Negative); Urine Clarity Clear (Clear); Urine Urobilinogen Normal (Normal)
[2018-02-05] MEDS: Insulin Lispro 100 UNIT/ML INSULN.PEN SQ (06:26)
[2018-02-05 06:27] LABS: Bacteria RARE /hpf (None Seen); Mucous, Urine 1+ /hpf (<or=2+); Squamous Epithelial Cells - UA 0-5 SEEN /hpf (5-10)
[2018-02-05 06:28] LABS: White Blood Cells 0-5 SEEN /hpf (0-5)
[2018-02-05 06:30] LABS: Bedside Glucose 154 mg/dL (70-110)
[2018-02-05 06:33] LABS: Absolute Lymphocyte Count 1.07 X10^3/ul (0.83-4.51); Absolute Neutrophil Count 6.9 X10^3/uL (2.0-7.7); Basophil# 0.02 X10^3/uL; Basophil% 0.2 % (0-1); Eosinophil# 0.35 X10^3/uL; Eosinophils% 3.8 % (0-5); Hematocrit 32.4 % (37-47); Hemoglobin 10.8 g/dl (12.0-15.0); Lymphocyte # 1.07 X10^3/ul (4.0); Lymphocyte % 11.6 % (19-41); Mean Corp Hgb Conc 33.3 g/gl (32-36); Mean Corpuscular Hgb 28.9 pg (27.0-32.0); Mean Corpuscular Volume 86.6 fL (81-99); Monocyte# 0.91 X10^3/uL; Monocyte% 9.9 % (0-10); Neutrophil # 6.86 X10^3/uL (2.7-7.7); Neutrophil % 74.3 % (47-70); Platelet Count 492 K/mm3 (150-450); RBC Distribution Width CV 12.9 % (11.6-14.6); Red Blood Count 3.74 M/mm3 (4.2-5.4); White Blood Count 9.2 K/mm3 (4.4-11.0)
[2018-02-05 06:36] LABS: POSITIVE COUNT NO; POSITIVE DIFFERENTIAL NO; POSITIVE MORPHOLOGY NO
[2018-02-05 06:52] LABS: Anion Gap 9 (5-15); BUN 74 mg/dL (7-18); BUN/Creat Ratio 22.6 RATIO (10-20); Calcium,Total 7.5 mg/dL (8.5-10.1); Chloride 103 mmol/L (98-107); Creatinine, Serum 3.27 mg/dL (0.55-1.02); EST Glomerular Filtration Rate 15 mL/min (>60); Est Glom Filt Rate - Afr Amer 18 mL/min (>60); Estimated Creatinine Clearance 14.02 ml/min; Glucose 140 mg/dL (74-106); Potassium 3.6 mmol/L (3.5-5.1); Sodium Level 135 mmol/L (136-145)
[2018-02-05] MEDS: oxyCODONE 5 MG Tablet PO (07:14)
--- NOTE | 2018-02-05 09:29 | CASEMGMT ---
Social Work Note Per Admissions questions, pt has Advanced Directives (HCPOA and Living Will) but has not provided [facility] with copy but states that someone is able to bring in copies to [facility]. Karly Castañeda KENNEL HAND, SCHOOL TRANSPORTATION SUPERVISOR
[2018-02-05] MEDS: Docusate Sodium 100 MG Capsule PO (09:54)
[2018-02-05] MEDS: Polyethylene Glycol 3350 17 GM PACKET PO (09:54)
[2018-02-05] MEDS: Heparin Injection (Vial) 5,000 UNIT/ML VIAL 5000 UNIT SC (09:54)
--- NOTE | 2018-02-05 11:40 | CASEMGMT ---
MARIA G BANEGAS Face to Face with patient for initial transition planning/care coordination assessment. RN BASSAM introduced self and role at [facility]. Patient lying in bed, alert and oriented. Patient willing to participate in assessment and is able to answer all questions appropriately. Care providers, pharmacy, and demographics verified. See link attached. Patient wishes to discharge home, denies need for home health at this time, will continue to monitor need for HHC. Patient states he has no further needs or concerns at this time. CM to follow for discharge planning needs that may arise. Disposition Plan: Patient to discharge home with family support and follow-up plans in place. Will monitor for need for HHC. Karly ALEXANDRE, RN, CM
--- NOTE | 2018-02-05 12:06 | PCM.CONS.GEN ---
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 Metastatic adenocarcinoma; unknown primary History of Present Illness: The patient is a 67 year old F who presents with worsening bilateral groin pain. Patient notes she had a right ovarian mass which was noted 6 years ago. Per patient, the right ovarian mass is a cyst. Patient notes her PCP has been monitoring the size of the cyst. Patient notes she has not been evaluated by a [employer]. She was scheduled to see Dr. Knutson however she was then hospitalized. Patient notes over the last 2-3 years she went from 240 pounds down to 160 pounds earlier this year unintentionally. Patient noted she has now had a 3 month history of constipation and 2 week history of worsening nausea. She was evaluated by her PCP at the beginning of this month for back pain and abdominal pain. A CT scan was ordered of the abdomen/pelvis demonstrating a right ovarian cyst and retroperitoneal lymphadenopathy. She had a CT guided biopsy of the lymph nodes which demonstrated adenocarcinoma consist with colonic primary. Patient has been evaluated by Dr. Alvarez, oncology who recommended further imaging of the chest and additional work-up for staging. They were to follow-up with him tomorrow. Patient noted her renal function has slowly been declining. She was told her kidney's were functioning at 20%. Patient notes her appetite has slowly declined. She eats very few bites of a meal. She has never had a colonoscopy. She notes she was given yearly fecal occult blood tests which she noted never were completed. She denies melena, bright red blood per rectum. She notes a sister who from colon cancer in her 50's. Patient had tried suppositories without successful bowel movements. Patient notes her last bowel movement was yesterday. She notes small pebble-like consistency. She denies history of blood clots, myocardial infarction, stroke. She denies previous abdominal surgeries. She notes left axillary hydradenitis surgery 2 years ago approximately. Past Medical History Past Medical History (Chronic Problems): Chronic Problems (Last Updated 01/30/18 @ 09:59 by Mariia Geller) Hypertension (Chronic) Hypothyroid (Chronic) Hyperlipemia (Chronic) Chronic back pain (Chronic) DM type 2 (diabetes mellitus, type 2) (Chronic) CKD (chronic kidney disease) (Chronic) Medical History: Medical History (Last Reviewed 02/05/18 @ 12:29 by Alba Zheng PA-C) CT guided biopsy Left retroperitoneal lymph node biopsy 01/22/18 [facility] Allergies codeine Allergy (Verified 02/04/18 20:46) Other iodine Allergy (Verified 02/04/18 20:46) Other Penicillins Allergy (Verified 02/04/18 20:46) Hives PAPER TAPE Allergy (Uncoded 02/04/18 20:46) Rash Home Medications: Ambulatory Orders Medication Instructions Recorded Oxycodone CR [Oxycontin] 10 mg PO Q12H 02/04/18 Oxycodone CR [Oxycontin] 10 mg PO TID 02/04/18 Surgical History: Surgical History (Last Reviewed 02/05/18 @ 12:29 by Alba Zheng PA-C) H/O dilation and curettage Z98.890 Surgical History: - - myomectomy, [employer] History: No pertinent [employer] history Lives: Spouse/ Significant Other Smoking Status: Former smoker Alcohol: None Drugs: None - *Family History Sibling Family History: Family History (Last Reviewed 02/05/18 @ 12:29 by Alba Zheng PA-C) Sister Cancer Father Cancer Grandmother Diabetes History Items: No pertinent history Offspring Family History: Family History (Last Reviewed 02/05/18 @ 12:29 by Alba Zheng PA-C) Sister Cancer Father Cancer Grandmother Diabetes History Items: Cancer - Lymphoma Review of Systems Constitutional: Reports: Anorexia, Malaise, Weight Change, Fatigue HEENT: Denies: Head Aches, Sinus Congestion, Sinus Drainage Cardiovascular: Denies: Chest Pain, Palpitations Respiratory: Reports: Shortness of Breath Gastrointestinal: Reports: Abdominal Pain, Constipation, Nausea. Denies: Hematochezia, Melena, Vomiting Genitourinary: Reports: Urgency Musculoskeletal: Denies: Joint Pain, Joint Tenderness Skin: Denies: Rash, Wounds Neurological: Denies: Numbness, Tingling, Focal weakness Psychiatric: Denies: Anxiety, Depression, Homicidal Ideations, Suicidal Ideations Hematologic/ Lymphatic: Reports: Anemia Patient Problems: Active and Suspected Problems (Last Updated 01/30/18 @ 09:59 by Mariia Geller) Abdominal pain (Acute) - Physical Exam General: Alert, Oriented x3, Cooperative HEENT: Atraumatic, PERRLA, EOMI, Normocephalic Neck: Supple, No JVD, Negative Carotid Bruits Lungs: Clear to auscultation, Normal air movement Cardiovascular: Regular rate, No murmurs Abdomen: Bowel Sounds Present, Distended - slightly, Tender - generalized abdominal pressure; tenderness bilateral groin region, - - rectal exam- niternal hemorrhoids. No definite mass palpated. No residue stool Extremities: No edema, Capillary Refill Less than 3 Seconds Skin: No rashes, No breakdown Musculoskeletal: No Tenderness to Palpation of Joints or Extremities Neurological: Neuro grossly intact Psych/Mental Status: Normal Affect, Appropriate Vital Signs Temp Pulse Resp BP Pulse Ox 98.7 F 83 16 177/76 H 96 02/05/18 09:38 02/05/18 09:38 02/05/18 09:38 02/05/18 09:38 02/05/18 09:38 Oxygen Delivery Method Room Air Weight: 179 lb 10.828 oz Body Mass Index (BMI) 30.8 Intake and Output for Last 24 Hours 02/03/18 02/04/18 02/05/18 23:59 23:59 23:59 Intake Total 928 / 928 Output Total 225 / 225 Balance 703 / 703 Laboratory Tests Past 24 Hrs 02/05/18 02/05/18 02/05/18 04:05 06:18 06:18 WBC 9.2 RBC 3.74 L Hgb 10.8 L Hct 32.4 L MCV 86.6 MCH 28.9 MCHC 33.3 RDW 12.9 RDW Differential 40.0 Plt Count 492 H MPV 8.0 Immature Gran % (Auto) 0.200 Neut % (Auto) 74.3 H Lymph % (Auto) 11.6 L [place] % (Auto) 9.9 Eos % (Auto) 3.8 Baso % (Auto) 0.2 Absolute Neuts (auto) 6.9 Absolute Lymphs (auto) 1.07 Total Counted Not Reportable Sodium 135 L Potassium 3.6 Chloride 103 Carbon Dioxide 23.0 Anion Gap 9 BUN 74 H Creatinine 3.27 H Estim Creat Clear Calc 14.02 Est GFR (MDRD) Af Amer 18 L Est GFR (MDRD) Non-Af 15 L BUN/Creatinine Ratio 22.6 H Glucose 140 H Calcium 7.5 L Urine Color Yellow Urine Clarity Clear Urine pH 5.0 Ur Specific [place] 1.020 Urine Protein 100 H Urine Glucose (UA) 50 H Urine Ketones Negative Urine Occult Blood 10 H Urine Nitrite Negative Urine Bilirubin Negative Urine Urobilinogen Normal Ur Leukocyte Esterase 25 H Urine RBC 0 SEEN Urine WBC 0-5 SEEN Ur Squamous Epith Cells 0-5 SEEN Urine Bacteria RARE Urine Mucus 1+ POC Glucose 02/05/18 06:25 POC Glucose 154 H Assessment/Plan All Active Problems (Last Updated 01/30/18 @ 09:59 by Mariia Geller) Abscess and cellulitis (Acute) Back pain (Acute) Vomiting (Acute) Metastatic adenocarcinoma (Acute) 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 Navarro Impression: Abdominal/bilateral groin pain. Recent diagnosis of metastatic adenocarcinoma of suspected colonic primary Plan: Patient was discussed with Dr. Navarro. Dr. Navarro will plan to perform a colonoscopy with or without possible biopsies with MAC tomorrow. Procedure details, risks and benefits have been explained. Recommend Golytely over the entire afternoon slowly. Continue clear liquids with bowel prep. NPO after midnight. Hold Heparin until after the procedure. Continue SCDs. Patient and her have had the opportunity to ask and have questions answered. Patient verbally understands and agrees with the plan. Thank you for allowing us to participate in this patient's care. My recommendations will be available via electronic medical records. Code Visit Office Visits / Consults: [id number] IP Consult L3
[2018-02-05 12:20] LABS: Bedside Glucose 151 mg/dL (70-110)
[2018-02-05] MEDS: Electrolyte Solution/Peg's 4000 ML PO (13:03)
--- NOTE | 2018-02-05 16:32 | ONC.CONS.INP ---
Consult Referring Physician: Dr. Josef Jacobs. Consult Results: metastatic carcinoma-primary unknown at this time. Subjective Date of Service:: 02/05/18 Chief Complaint: increased ABD pain with nausea History of Present Illness: 67y.o.woman has had a tubo-ovarian mass since 2011, she does not recall any workup for it. She developed abdominal pain, CT scan on 01/16/18 showed retroperitoneal adenopathy, 5.5 cm complex right adnexal mass. CA125 on 01/17/[address]-guided biopsy of retroperitoneal adenopathy on 01/22/18 showed poorly differentiated adenocarcinoma, consistent with colonic primary. CT chest on 02/01/2018 showed mediastinal adenopathy. She had progressive abdominal pain with no bowel motion for about 5 days. She was taking Percocet for pain relief. 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 (Chronic) CKD (chronic kidney disease) (Chronic) Past Medical/Surgical History: Past Medical History - Most Recent Inpatient Visit Past Medical History Start: 02/05/18 00:25 Text: Status: Complete Freq: ONCE Protocol: Document 02/05/18 00:35 SHIRLEY (Rec: 02/05/18 00:43 SHIRLEY [id number]) BMI Required to complete PMH What is Patient's BMI 30.8 Past Medical History Unable History Recalled No Query Text:Pt Unable/Family Not Present Neurologic Medical History Hx Stroke/TIA No Hx Dementia/Alzheimer's No Hx Parkinson's Disease No Hx Seizures No Hx Multiple Sclerosis No Hx Migraines No Cardiac Medical History VTE Present on Admission No Hx of Deep Vein Thrombosis/VTE/PE No Hx Hypertension Yes Hx Chest Pain/Angina No Hx Heart Attack No Hx Cardiac Surgery/Stents/Etc. No Hx Heart Failure No Hx Pacemaker/AICD No Hx Irregular Heartbeat and/or Afib No Hx Anticoagulant Therapy No: was on low dose aspirin Query Text:(Coumadin, Aspirin, Plavix, Xarelto, etc.) Hx Pain in Legs when Walking/Leg Cramps Yes: cramps at night Respiratory Medical History Hx COPD No Hx Emphysema No Hx Smoking Yes Smoking Status Former smoker Years Smoking 45 Packs Smoked per Day 1 Hx Tobacco Use in last 12 months No Hx of Pipe Smoking No Hx of Cigar Smoking No Hx Sleep Apnea No CPAP No Do you snore loudly (louder than talking No or can be heard through closed doors)? Do you often feel tired/ fatigued/ No sleepy during daytime? Has anyone observed you stop breathing No during sleep? STOP Results Negative GI Medical History Hx Ulcer No Hx Hepatitis No Hx Cirrhosis No Hx GI Bleed No Hx Unplanned Weight Loss No Genitourinary Medical History Indwelling Catheter in Place on Arrival/ No Admission Hx Renal Disease Yes: 20 function of kidneys Hx Dialysis No Musculoskeletal History Hx Arthritis Yes: tailbone Hx Rheumatoid Arthritis No Endocrine Medical History Hx Diabetes Yes: off actos d/t kidney functin Hx Thyroid Disease Yes: pt. states when younger Hematologic Medical History Hx of Blood Transfusion No Hx of Transfusion in last 3 Months No Ever experience any problems with No transfusion(s)? Hx of Preganancy in last 3 Months N/A Nurse Filling Out Transfusion & JEDWARDS Questions: Date: 02/05/18 Time: 00:41 Psycho/Social Medical History Hx Depression Yes: r/t to pain Hx Anxiety Yes: just wants to get better Hx Behavior Disorder No Hx Alcohol Use No Hx Substance Use No Other Medical History Hx Blood Disorders No Hx Anemia No Hx Cancer Yes: new dx colon Hx Drug Resistant Organism No Wound/Pressure Injury Present on Arrival No /Admission Query Text:If yes, chart assessment in Shift/Clinical Findings Central Line/PICC/VAD Present on Arrival No /Admission Antibiotics within last 7 days? Yes Comments couple weeks ago Methicillin Resistant Staphylococcus aureus Screening Active MRSA No Risk for Readmission Number of Risk Factors 8 At Risk for Readmission Patient is At Risk For Readmission Patient is eligible for Call Back Y Past Medical History (Last Reviewed 02/05/18 @ 12:29 by Alba Zheng PA-C) CT guided biopsy (Acute) Past Surgical History (Last Reviewed 02/05/18 @ 12:29 by Alba Zheng PA-C) H/O dilation and curettage (Acute) Sibling Family History: Family History (Last Reviewed 02/05/18 @ 12:29 by Alba Zheng PA-C) Sister Cancer Father Cancer Grandmother Diabetes Family History: No pertinent history Offspring Family History: Family History (Last Reviewed 02/05/18 @ 12:29 by Alba Zheng PA-C) Sister Cancer Father Cancer Grandmother Diabetes Family History: Cancer - Lymphoma - Social History Lives: Spouse/ Significant Other Smoking Status: Former smoker Alcohol: None Drugs: None Allergies/Adverse Reactions: Allergy/AdvReac Type Severity Reaction Status Date / Time codeine Allergy Other Verified 02/04/18 20:46 iodine Allergy Other Verified 02/04/18 20:46 Penicillins Allergy Hives Verified 02/04/18 20:46 PAPER TAPE Allergy Rash Uncoded 02/04/18 20:46 Review of Systems Constitutional:: Reports: Weakness, Fatigue, Appetite change - Poor, not eating much.. Denies: Fever, Sweats Cardiovascular:: Denies: Chest pain, Palpitations, Dyspnea on exertion, Orthopnea, PND, Shortness of breath Respiratory: Denies: Cough, Hemoptysis, Shortness of Breath, Wheezing Gastrointestinal:: Reports: Abdominal pain, Nausea, Constipation. Denies: Hematochezia Genitourinary: Denies: Dysuria, Hematuria, 15, Flank pain Musculoskeletal:: Denies: Back pain, Myalgia, Arthralgia Skin: Denies: Rash, Skin Changes, Wounds Neurological:: Denies: Headache, Dizziness, Visual changes, Tinnitus, Hearing loss Psychiatric: Denies: Anxiety, Depression, Homicidal Ideations, Suicidal Ideations Vital Signs Height 5 ft 4 in Weight: 81.5 kg Weight in Pounds 179.7 lbs Pulse Ox 99 Temperature 98.1 F Pulse Rate 80 Respiratory Rate 18 Blood Pressure 167/69 Blood Pressure Position Semi-Fowlers - Physical Exam General: Alert, Oriented x3, No apparent distress Cardiac:: Regular rate, Regular rhythm, Normal S1, Normal S2. Negative for: Murmur Lungs: Clear to auscultation, Excusion symmetrical. Negative for: Rhonchi, Wheezes Neurological: Neuro grossly intact Lymphatics:: Negative for: Cervical lymphadenopathy, Supraclavicular lymphadenopathy, Axillary lymphadenopathy Laboratory Data: Laboratory Tests 02/05/18 02/05/18 02/05/18 Range/Units 12:18 06:25 06:18 WBC (4.4-11.0) K/mm3 RBC (4.2-5.4) M/mm3 Hgb (12.0-15.0) g/dl Hct (37-47) % MCV (81-99) fL MCH (27.0-32.0) pg MCHC (32-36) g/gl RDW (11.6-14.6) % RDW Differential (35.1-43.9) fl Plt Count (150-450) K/mm3 MPV (6.2-12.0) fl Immature Gran % (Auto) (0.0-0.9) % Neut % (Auto) (47-70) % Lymph % (Auto) (19-41) % Branch % (Auto) (0-10) % Eos % (Auto) (0-5) % Baso % (Auto) (0-1) % Absolute Neuts (auto) (2.0-7.7) X10^3/uL Absolute Lymphs (auto) (0.83-4.51) X10^3/ul Total Counted Sodium 135 L (136-145) mmol/L Potassium 3.6 (3.5-5.1) mmol/L Chloride 103 (98-107) mmol/L Carbon Dioxide 23.0 (21.0-32.0) mmol/L Anion Gap 9 (5-15) BUN 74 H (7-18) mg/dL Creatinine 3.27 H (0.55-1.02) mg/dL Estim Creat Clear Calc 14.02 ml/min Est GFR (MDRD) Af Amer 18 L (>60) mL/min Est GFR (MDRD) Non-Af 15 L (>60) mL/min BUN/Creatinine Ratio 22.6 H (10-20) RATIO Glucose 140 H (74-106) mg/dL Calcium 7.5 L (8.5-10.1) mg/dL Urine Color (Yellow) Urine Clarity (Clear) Urine pH (5.0 - 8.0) Ur Specific [place] (1.002-1.030) Urine Protein (Negative) mg/dl Urine Glucose (UA) (Normal) mg/dl Urine Ketones (Negative) mg/dl Urine Occult Blood (Negative) /ul Urine Nitrite (Negative) Urine Bilirubin (Negative) mg/dL Urine Urobilinogen (Normal) mg/dl Ur Leukocyte Esterase (Negative) /ul Urine RBC (0-5) /hpf Urine WBC (0-5) /hpf Ur Squamous Epith Cells (5-10) /hpf Urine Bacteria (None Seen) /hpf Urine Mucus (<or=2+) /hpf POC Glucose 151 H 154 H (70-110) mg/dL 02/05/18 02/05/18 Range/Units 06:18 04:05 WBC 9.2 (4.4-11.0) K/mm3 RBC 3.74 L (4.2-5.4) M/mm3 Hgb 10.8 L (12.0-15.0) g/dl Hct 32.4 L (37-47) % MCV 86.6 (81-99) fL MCH 28.9 (27.0-32.0) pg MCHC 33.3 (32-36) g/gl RDW 12.9 (11.6-14.6) % RDW Differential 40.0 (35.1-43.9) fl Plt Count 492 H (150-450) K/mm3 MPV 8.0 (6.2-12.0) fl Immature Gran % (Auto) 0.200 (0.0-0.9) % Neut % (Auto) 74.3 H (47-70) % Lymph % (Auto) 11.6 L (19-41) % Branch % (Auto) 9.9 (0-10) % Eos % (Auto) 3.8 (0-5) % Baso % (Auto) 0.2 (0-1) % Absolute Neuts (auto) 6.9 (2.0-7.7) X10^3/uL Absolute Lymphs (auto) 1.07 (0.83-4.51) X10^3/ul Total Counted Not Reportable Sodium (136-145) mmol/L Potassium (3.5-5.1) mmol/L Chloride (98-107) mmol/L Carbon Dioxide (21.0-32.0) mmol/L Anion Gap (5-15) BUN (7-18) mg/dL Creatinine (0.55-1.02) mg/dL Estim Creat Clear Calc ml/min Est GFR (MDRD) Af Amer (>60) mL/min Est GFR (MDRD) Non-Af (>60) mL/min BUN/Creatinine Ratio (10-20) RATIO Glucose (74-106) mg/dL Calcium (8.5-10.1) mg/dL Urine Color Yellow (Yellow) Urine Clarity Clear (Clear) Urine pH 5.0 (5.0 - 8.0) Ur Specific [place] 1.020 (1.002-1.030) Urine Protein 100 H (Negative) mg/dl Urine Glucose (UA) 50 H (Normal) mg/dl Urine Ketones Negative (Negative) mg/dl Urine Occult Blood 10 H (Negative) /ul Urine Nitrite Negative (Negative) Urine Bilirubin Negative (Negative) mg/dL Urine Urobilinogen Normal (Normal) mg/dl Ur Leukocyte Esterase 25 H (Negative) /ul Urine RBC 0 SEEN (0-5) /hpf Urine WBC 0-5 SEEN (0-5) /hpf Ur Squamous Epith Cells 0-5 SEEN (5-10) /hpf Urine Bacteria RARE (None Seen) /hpf Urine Mucus 1+ (<or=2+) /hpf POC Glucose (70-110) mg/dL Diagnostic Data: Diagnostic Data Abdomen/Pelvis CT 02/04/18 21:47 IMPRESSION: 1. An expected volume of fecal material, partially opacified by contrast from earlier study, fills the colon. There is diverticulosis without acute articularis. No sign of bowel obstruction. The appendix is not visualized. 2. Retroperitoneal adenopathy again identified. Mesenteric lymph nodes also now range from nonspecific subcentimeter size to borderline enlarged. 3. There is slight worsened right hydroureteronephrosis and minor distention of the left collecting system down to the pelvic inlet. Moderate stranding of the perinephric soft tissues is unchanged. 4. Stable mild mural thickening in the dome and left wall of the urinary bladder, which could reflect regional cystitis or other infiltrative process. 5. Stable complicated cystic structure(s) in the right ovary. The uterus and left ovary are unremarkable. 6. Worsened edema or ecchymosis in the subcutaneous tissues of the abdominal pelvic eaton, most prominent laterally and posteriorly. 7. Worsened bilateral pleural effusions, larger on the right, with subsegmental atelectasis in the adjacent lung bases. There is stable small inferior pericardial effusion or thickening. 8. Atherosclerotic vascular calcifications again noted. No demonstrated aortic aneurysm. 9. Hepatic steatosis. 10. Mildly patchy density of the vertebrae could reflect demineralization versus other infiltrative process. Electronically Signed: Armaan Reyes MD at 23:14 EDT , Service support , Assessment and Plan Metastatic adenocarcinoma consistent with colonic primary. Retroperitoneal adenopathy and mediastinal adenopathy. Thickened bladder wall, rule out bladder tumor. PET/CT was scheduled as outpatient. Constipation, bowel preparation with relieve constipation. Suggestions 1. To obtain urology consult for cystoscopy. 2 Proceed with colonoscopy and upper GI endoscopy. 3. Obtain urine for cytology. Will follow with further suggestions when work up is done. Medications: Prescriptions This Visit Medication Instructions Recorded Oxycodone CR [Oxycontin] 10 mg PO Q12H 02/04/18 Oxycodone CR [Oxycontin] 10 mg PO TID 02/04/18 Medications Added to Medication List This Visit Category Date Time Status Docusate Sodium [Colace] Med 02/05/18 10:00 Active 100 mg PO BID Heparin Injection (Vial) [Heparin Na] Med 02/05/18 10:00 Hold 5,000 unit SC Q12 Oxycodone CR [Oxycontin] Med 02/05/18 10:00 Active 10 mg PO Q12 Polyethylene Glycol 3350 [Miralax] Med 02/05/18 10:00 Active 17 gm PO DAILY morphine Inj Med 02/05/18 09:28 Active 6 mg IV Q3H PRN PRN Primary Care Provider: Nii Mc Referring Provider: Jayy Alvarez MD - Problem List (1) 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
[2018-02-05 16:50] LABS: Bedside Glucose 126 mg/dL (70-110)
--- NOTE | 2018-02-05 17:32 | PN_ITS ---
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 Patient has not had a colonoscopy yet, she states that she had not had one in the past, according to her PCP, she had refused previous request to have a colonoscopy done. Daughter and are in the room today, I decided to have general surgery see the patient and perform a colonoscopy in order to get tissue to confirm the diagnosis that it is a colon tumor. In the meantime, patient will be given IV pain medications - Physical Exam General: Alert, Oriented x3, Cooperative, Well developed HEENT: Atraumatic, PERRLA, EOMI, Normocephalic Oral: Moist Mucosa Neck: Supple, Trachea Midline, Thyroid Normal Size and Texture Lungs: Clear to auscultation, Normal air movement, No rhonchi, No wheeze, No rales Cardiovascular: Regular rate, Regular Rhythm, Normal S1, Normal S2, No murmurs, No Ectopic Activity, PMI Normal, No rub noted, No Gallop Abdomen: Bowel Sounds Present, Soft, Non Tender, Non-Distended, No hernias noted Extremities: No edema, Capillary Refill Less than 3 Seconds Skin: No rashes, No breakdown Musculoskeletal: No Tenderness to Palpation of Joints or Extremities Neurological: Cranial nerves II-XII grossly intact, Neuro grossly intact, Muscle tone normal, Sensory exam intact to light touch and pain Psych/Mental Status: Normal Affect, Appropriate, Alert and oriented to time, place, person, mood and affect Vital Signs Temp Pulse Resp BP Pulse Ox 98.1 F 80 18 167/69 H 99 02/05/18 13:55 02/05/18 13:55 02/05/18 13:55 02/05/18 13:55 02/05/18 13:55 Oxygen Delivery Method Room Air Weight: 81.5 kg Body Mass Index (BMI) 30.8 Intake and Output for Last 24 Hours 02/03/18 02/04/18 02/05/18 23:59 23:59 23:59 Intake Total 3531 / 3531 Output Total 625 / 625 Balance 2906 / 2906 Laboratory Tests Past 24 Hrs 02/05/18 02/05/18 02/05/18 04:05 06:18 06:18 WBC 9.2 RBC 3.74 L Hgb 10.8 L Hct 32.4 L MCV 86.6 MCH 28.9 MCHC 33.3 RDW 12.9 RDW Differential 40.0 Plt Count 492 H MPV 8.0 Immature Gran % (Auto) 0.200 Neut % (Auto) 74.3 H Lymph % (Auto) 11.6 L [place] % (Auto) 9.9 Eos % (Auto) 3.8 Baso % (Auto) 0.2 Absolute Neuts (auto) 6.9 Absolute Lymphs (auto) 1.07 Total Counted Not Reportable Sodium 135 L Potassium 3.6 Chloride 103 Carbon Dioxide 23.0 Anion Gap 9 BUN 74 H Creatinine 3.27 H Estim Creat Clear Calc 14.02 Est GFR (MDRD) Af Amer 18 L Est GFR (MDRD) Non-Af 15 L BUN/Creatinine Ratio 22.6 H Glucose 140 H Calcium 7.5 L Urine Color Yellow Urine Clarity Clear Urine pH 5.0 Ur Specific Morse 1.020 Urine Protein 100 H Urine Glucose (UA) 50 H Urine Ketones Negative Urine Occult Blood 10 H Urine Nitrite Negative Urine Bilirubin Negative Urine Urobilinogen Normal Ur Leukocyte Esterase 25 H Urine RBC 0 SEEN Urine WBC 0-5 SEEN Ur Squamous Epith Cells 0-5 SEEN Urine Bacteria RARE Urine Mucus 1+ POC Glucose 02/05/18 02/05/18 02/05/18 16:44 12:18 06:25 POC Glucose 126 H 151 H 154 H Medical Necessity - Tobacco Use Smoking Status: Former smoker Assessment/Plan All Active Problems (Last Reviewed 02/05/18 @ 12:29 by Alba Zheng PA-C) Abscess and cellulitis (Resolved) Back pain (Resolved) Vomiting (Resolved) Abdominal pain (Acute) #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 Oncology saw the patient today #2 uncontrolled pain secondary to #1-patient was placed on IV morphine for pain #3 acute kidney injury-possibly secondary to increasing hydronephrosis from tumor, I will talk to urology who the patient is seen recently concerning this, I believe the probably need to see the patient #4 hypertension-patient was taken off her lisinopril sometime ago, I will add Norvas for her blood pressure #5 type 2 diabetes-blood sugars will be monitored Code Visit Inpatient E&M: 44905 Subs Hosp L2
[2018-02-05] MEDS: amLODIPine 5 MG Tablet PO (18:10)
[2018-02-05 21:11] LABS: Bedside Glucose 141 mg/dL (70-110)
[2018-02-05] MEDS: hydrALAZINE 20 MG/ML Vial 10 MG IV (21:39)
[2018-02-05] MEDS: morphine 10 MG/ML Syringe 6 MG IV (22:56)
--- NOTE | 2018-02-05 22:58 | NURSING ---
Pt. unable to drink all of bowel prep for colonoscopy, pt. drank 2250ml of 4,000 ml.
[2018-02-06] VITALS (8 sets, daily range): BP systolic 136–171; BP diastolic 66–75; PULSE 85–94; RESP 16; TEMP 36.6–36.9; O2SAT 93–98; BMI 30.8
[2018-02-06] MEDS: 0.9% Normal Saline 1,000 ML 125 ML IV ×3 (01:30→17:26)
[2018-02-06] MEDS: morphine 10 MG/ML Syringe 6 MG IV ×3 (04:55→22:07)
[2018-02-06 06:11] LABS: Bedside Glucose 124 mg/dL (70-110)
[2018-02-06 07:00] LABS: Absolute Lymphocyte Count 0.91 X10^3/ul (0.83-4.51); Absolute Neutrophil Count 7.9 X10^3/uL (2.0-7.7); Basophil# 0.02 X10^3/uL; Basophil% 0.2 % (0-1); Eosinophil# 0.25 X10^3/uL; Eosinophils% 2.5 % (0-5); Hematocrit 30.8 % (37-47); Hemoglobin 10.3 g/dl (12.0-15.0); Lymphocyte # 0.91 X10^3/ul (4.0); Lymphocyte % 9.1 % (19-41); Mean Corp Hgb Conc 33.4 g/gl (32-36); Mean Corpuscular Hgb 29.3 pg (27.0-32.0); Mean Corpuscular Volume 87.7 fL (81-99); Mean Platelet Vol. 8.2 fl (6.2-12.0); Monocyte# 0.85 X10^3/uL; Monocyte% 8.5 % (0-10); Neutrophil # 7.94 X10^3/uL (2.7-7.7); Neutrophil % 79.5 % (47-70); Platelet Count 487 K/mm3 (150-450); RBC Distribution Width CV 13.1 % (11.6-14.6); RBC Distribution Width SD 41.2 fl (35.1-43.9); Red Blood Count 3.51 M/mm3 (4.2-5.4)
[2018-02-06 07:03] LABS: POSITIVE COUNT NO; POSITIVE DIFFERENTIAL NO; POSITIVE MORPHOLOGY NO
[2018-02-06 07:41] LABS: Anion Gap 11 (5-15); BUN 73 mg/dL (7-18); BUN/Creat Ratio 23.4 RATIO (10-20); Calcium,Total 7.7 mg/dL (8.5-10.1); Chloride 108 mmol/L (98-107); Creatinine, Serum 3.12 mg/dL (0.55-1.02); EST Glomerular Filtration Rate 16 mL/min (>60); Est Glom Filt Rate - Afr Amer 19 mL/min (>60); Glucose 115 mg/dL (74-106); Sodium Level 140 mmol/L (136-145)
--- NOTE | 2018-02-06 07:49 | PCM.PN.SRG ---
Patient Problems: Active and Suspected Problems (Last Reviewed 02/05/18 @ 12:29 by Alba Zheng PA-C) Abdominal pain (Acute) Subjective: Patient was unable to tolerate prep. - Physical Exam General: Alert, Cooperative HEENT: Atraumatic Lungs: Normal air movement Abdomen: Soft, Non Tender, Non-Distended Vital Signs Temp Pulse Resp BP Pulse Ox 98.1 F 86 16 163/67 H 95 02/06/18 06:08 02/06/18 06:08 02/06/18 06:08 02/06/18 06:08 02/06/18 06:08 Oxygen Delivery Method Room Air Weight: 179 lb 10.828 oz Body Mass Index (BMI) 30.8 Finger Stick Blood Glucose 181 Intake and Output for Last 24 Hours 02/04/18 02/05/18 02/06/18 23:59 23:59 23:59 Intake Total 3531 / 3531 3945 / 3945 Output Total 625 / 625 Balance 2906 / 2906 3945 / 3945 Laboratory Tests Past 24 Hrs 02/06/18 02/06/18 06:14 06:14 WBC 10.0 RBC 3.51 L Hgb 10.3 L Hct 30.8 L MCV 87.7 MCH 29.3 MCHC 33.4 RDW 13.1 RDW Differential 41.2 Plt Count 487 H MPV 8.2 Immature Gran % (Auto) 0.200 Neut % (Auto) 79.5 H Lymph % (Auto) 9.1 L [place] % (Auto) 8.5 Eos % (Auto) 2.5 Baso % (Auto) 0.2 Absolute Neuts (auto) 7.9 H Absolute Lymphs (auto) 0.91 Total Counted Not Reportable Sodium 140 Potassium 4.0 Chloride 108 H Carbon Dioxide 21.0 Anion Gap 11 BUN 73 H Creatinine 3.12 H Estim Creat Clear Calc 14.70 Est GFR (MDRD) Af Amer 19 L Est GFR (MDRD) Non-Af 16 L BUN/Creatinine Ratio 23.4 H Glucose 115 H Calcium 7.7 L POC Glucose 02/06/18 02/05/18 02/05/18 06:00 21:02 16:44 POC Glucose 124 H 141 H 126 H 02/05/18 12:18 POC Glucose 151 H Medical Necessity - Tobacco Use Smoking Status: Former smoker Assessment/Plan All Active Problems (Last Reviewed 02/05/18 @ 12:29 by Alba Zheng PA-C) Abscess and cellulitis (Resolved) Back pain (Resolved) Vomiting (Resolved) Abdominal pain (Acute) 67-year-old female with metastatic carcinoma, likely colon 1. The patient was unable to tolerate her bowel prep. Her last bowel movement was thick and not see-through. I informed her that she would need to be having see-through bowel movements before I would be able to do a scope. I will give her a bottle of mag citrate this morning to see if she can go before the scope. If she is unable to produce clear stool before the time of her scope I will cancel and have to do it as an outpatient. 2. I did note that Dr. Alvarez would like me to perform an EGD as well and I discussed this with the patient. Pedro Navarro MD Pager: [facility] [address] [place] [address], [address] [place] [address] Office:
[2018-02-06] MEDS: Magnesium Citrate 300 ML PO (08:19)
--- NOTE | 2018-02-06 09:31 | NURSING ---
Attempt to call report to at [phone]. They request calling back.
--- NOTE | 2018-02-06 09:33 | CON.PCM_ITS ---
Problem List (1) Renal failure (ARF), acute on chronic Status: Acute (2) Hydronephrosis Status: Acute (3) Metastatic adenocarcinoma Status: Chronic Reason for Consult Date of Consultation: 02/06/18 Reason for Consultation: hydronephrosis with rising Cr, retroperitoneal nodes with likey colon adenocarcinoma. History of Present Illness: The patient is a 67 year old F that I saw in the office approximately 2 weeks ago with the start of right-sided hydronephrosis and a creatinine in the mid 2 range. At that time she had a chronic and stable pelvic mass and in enlarged lymph node that she was going for biopsy. I have been called secondary to her admission into the hospital with biopsy positive for adenocarcinoma likely colonic source. A CT scan has been repeated due to her pain and an increasing right-sided hydronephrosis along with early left-sided hydronephrosis and bladder abnormalities have been identified. There is an attempt in progress for a cleanout and colonoscopy. The patient currently just complains of diffuse lower abdominal pain and has been unable to perform her prep adequately. She denies flank pain. Past Medical History Past Medical History (Chronic Problems): Chronic Problems (Last Reviewed 02/05/18 @ 12:29 by Alba Zheng PA-C) Hypertension (Chronic) Hypothyroid (Chronic) Hyperlipemia (Chronic) Chronic back pain (Chronic) DM type 2 (diabetes mellitus, type 2) (Chronic) Metastatic adenocarcinoma (Chronic) Metastatic adenocarcinoma involving retroperitoneum with unknown primary site (Chronic) CKD (chronic kidney disease) (Chronic) Medical History: Medical History (Last Reviewed 02/05/18 @ 12:29 by Alba Zheng PA-C) CT guided biopsy Left retroperitoneal lymph node biopsy 01/22/18 [facility] Allergies codeine Allergy (Verified 02/04/18 20:46) Other iodine Allergy (Verified 02/04/18 20:46) Other Penicillins Allergy (Verified 02/04/18 20:46) Hives PAPER TAPE Allergy (Uncoded 02/04/18 20:46) Rash Home Medications: Ambulatory Orders Medication Instructions Recorded Oxycodone CR [Oxycontin] 10 mg PO Q12H 02/04/18 Oxycodone CR [Oxycontin] 10 mg PO TID 02/04/18 Surgical History: Surgical History (Last Reviewed 02/05/18 @ 12:29 by Alba Zheng PA-C) H/O dilation and curettage Z98.890 Surgical History: - - myomectomy, [employer] History: No pertinent [employer] history, - - known pelvic mass Lives: Spouse/ Significant Other Smoking Status: Former smoker Alcohol: None Drugs: None - *Family History Sibling Family History: Family History (Last Reviewed 02/05/18 @ 12:29 by Alba Zheng PA-C) Sister Cancer Father Cancer Grandmother Diabetes History Items: No pertinent history Offspring Family History: Family History (Last Reviewed 02/05/18 @ 12:29 by Alba Zheng PA-C) Sister Cancer Father Cancer Grandmother Diabetes History Items: Cancer - Lymphoma Review of Systems Constitutional: Reports: Anorexia, Weakness Eyes: Reports: Vision Change HEENT: Denies: Difficulty Hearing, Difficulty Swallowing, Visual Changes Cardiovascular: Denies: Chest Pain Respiratory: Denies: Shortness of Breath Gastrointestinal: Reports: Abdominal Pain Genitourinary: Denies: Dysuria Gynecological: Denies: Vaginal discharge Skin: Denies: Skin Changes Neurological: Denies: Balance problems Hematologic/ Lymphatic: Reports: Adenopathy Patient Problems: Active and Suspected Problems (Last Reviewed 02/05/18 @ 12:29 by Alba Zheng PA-C) Renal failure (ARF), acute on chronic (Acute) Hydronephrosis (Acute) Abdominal pain (Acute) - Physical Exam General: Oriented x3, Cooperative HEENT: Atraumatic, Normocephalic Oral: Dry Mucosa Neck: Trachea Midline Lungs: Normal air movement Cardiovascular: Regular rate Abdomen: Soft, Tender - especially lower abdomen, no rebound Skin: No rashes Neurological: Neuro grossly intact Psych/Mental Status: Normal Affect Vital Signs Temp Pulse Resp BP Pulse Ox 98.1 F 86 16 163/67 H 95 02/06/18 06:08 02/06/18 06:08 02/06/18 06:08 02/06/18 06:08 02/06/18 06:08 Oxygen Delivery Method Room Air Weight: 81.5 kg Body Mass Index (BMI) 30.8 Finger Stick Blood Glucose 181 Intake and Output for Last 24 Hours 02/04/18 02/05/18 02/06/18 23:59 23:59 23:59 Intake Total 3531 / 3531 3945 / 3945 Output Total 625 / 625 Balance 2906 / 2906 3945 / 3945 Laboratory Tests Past 24 Hrs 02/06/18 02/06/18 06:14 06:14 WBC 10.0 RBC 3.51 L Hgb 10.3 L Hct 30.8 L MCV 87.7 MCH 29.3 MCHC 33.4 RDW 13.1 RDW Differential 41.2 Plt Count 487 H MPV 8.2 Immature Gran % (Auto) 0.200 Neut % (Auto) 79.5 H Lymph % (Auto) 9.1 L [place] % (Auto) 8.5 Eos % (Auto) 2.5 Baso % (Auto) 0.2 Absolute Neuts (auto) 7.9 H Absolute Lymphs (auto) 0.91 Total Counted Not Reportable Sodium 140 Potassium 4.0 Chloride 108 H Carbon Dioxide 21.0 Anion Gap 11 BUN 73 H Creatinine 3.12 H Estim Creat Clear Calc 14.70 Est GFR (MDRD) Af Amer 19 L Est GFR (MDRD) Non-Af 16 L BUN/Creatinine Ratio 23.4 H Glucose 115 H Calcium 7.7 L POC Glucose 02/06/18 02/05/18 02/05/18 06:00 21:02 16:44 POC Glucose 124 H 141 H 126 H 02/05/18 12:18 POC Glucose 151 H Assessment/Plan All Active Problems (Last Reviewed 02/05/18 @ 12:29 by Alba Zheng PA-C) Renal failure (ARF), acute on chronic (Acute) Hydronephrosis (Acute) Abscess and cellulitis (Resolved) Back pain (Resolved) Vomiting (Resolved) Abdominal pain (Acute) Discussed cystoscopy, bilateral ureteral stent insertion and bladder biopsy with patient and . We discussed the risks, benefits and alternatives including the risks of anesthesia, bleeding, infection and injury. We also discussed the risk of continued renal failure with eventual need for dialysis. Given these risks in the current situation, with the possible need for chemotherapy treatments, we have decided to proceed with surgical intervention. I will call the operating room and make arrangements hopefully to be done sometime tomorrow.
--- NOTE | 2018-02-06 10:23 | NURSING ---
Notified AC staff nurse that pt's stool is still brown and not clear. She states that she will notify Dr. Navarro.
[2018-02-06] MEDS: 0.9% NaCl Peripheral Flush Adult/Peds IV (10:36)
[2018-02-06] MEDS: oxyCODONE HCl Cr 10 MG Tablet PO (10:36)
[2018-02-06] MEDS: amLODIPine 5 MG Tablet PO (10:36)
--- NOTE | 2018-02-06 11:59 | PCM.PN.BLA ---
Progress Note Patient was unable to complete her bowel prep. She is still having thick stool. I am unable to complete a colonoscopy at this time due to the thickness of the stool. I am out of town the rest of the week. I will arrange for her to have an outpatient EGD and colonoscopy next week. Pedro Navarro MD Pager: [facility] [address] [place] [address], [address] [place] [address] Office:
[2018-02-06 12:25] LABS: Bedside Glucose 143 mg/dL (70-110)
[2018-02-06 17:00] LABS: Bedside Glucose 213 mg/dL (70-110)
[2018-02-06] MEDS: Insulin Lispro 100 UNIT/ML INSULN.PEN SQ ×2 (17:25→21:30)
[2018-02-06] MEDS: Electrolyte Solution/Peg's 4000 ML PO (18:21)
--- NOTE | 2018-02-06 18:48 | PCM.PROGNOTE ---
Patient Problems: Active and Suspected Problems (Last Reviewed 02/05/18 @ 12:29 by Alba Zheng PA-C) Renal failure (ARF), acute on chronic (Acute) Hydronephrosis (Acute) Abdominal pain (Acute) Subjective: Patient was seen and examined today, she was not able to complete her GoLYTELY prep yesterday and so her colonoscopy was not performed today. Urology has the patient scheduled for a cystoscopy tomorrow, I believe however, that she needs the colonoscopy performed as soon as possible and I have asked Dr. Mariano if she is able to do the colonoscopy tomorrow and she is. Urology has graciously agreed to perform her cystoscopy on . I talked to the patient and the patient's about the prep that she is to drink today, patient is willing to have an NG inserted if she is not able to drink the prep and I have asked nursing to let me know if this is the case. Patient's creatinine was improved today. - Physical Exam General: Alert, Oriented x3, Cooperative, No apparent distress, Well developed, Well nourished HEENT: Atraumatic, PERRLA, EOMI, Normocephalic Oral: Moist Mucosa Neck: Supple, No Nuchal Rigidity, Trachea Midline, Thyroid Normal Size and Texture Lungs: Clear to auscultation, Normal air movement, No rhonchi, No wheeze, No rales Cardiovascular: Regular rate, Regular Rhythm, Normal S1, Normal S2, No murmurs, No Ectopic Activity, PMI Normal, No rub noted, No Gallop Abdomen: Bowel Sounds Present, Soft, Non Tender, Non-Distended, No hernias noted Extremities: No edema, Capillary Refill Less than 3 Seconds Skin: No rashes, No breakdown Musculoskeletal: No Tenderness to Palpation of Joints or Extremities Neurological: Cranial nerves II-XII grossly intact, Neuro grossly intact, Sensory exam intact to light touch and pain, Coordination normal Psych/Mental Status: Normal Affect, Appropriate, Alert and oriented to time, place, person, mood and affect Vital Signs Temp Pulse Resp BP Pulse Ox 98.5 F 91 16 136/66 H 93 02/06/18 16:31 02/06/18 16:31 02/06/18 16:31 02/06/18 16:31 02/06/18 16:31 Oxygen Delivery Method Room Air Weight: 81.5 kg Body Mass Index (BMI) 30.8 Finger Stick Blood Glucose 181 Intake and Output for Last 24 Hours 02/04/18 02/05/18 02/06/18 23:59 23:59 23:59 Intake Total 3531 / 3531 5998 / 5998 Output Total 625 / 625 600 / 600 Balance 2906 / 2906 5398 / 5398 Laboratory Tests Past 24 Hrs 02/06/18 02/06/18 06:14 06:14 WBC 10.0 RBC 3.51 L Hgb 10.3 L Hct 30.8 L MCV 87.7 MCH 29.3 MCHC 33.4 RDW 13.1 RDW Differential 41.2 Plt Count 487 H MPV 8.2 Immature Gran % (Auto) 0.200 Neut % (Auto) 79.5 H Lymph % (Auto) 9.1 L [place] % (Auto) 8.5 Eos % (Auto) 2.5 Baso % (Auto) 0.2 Absolute Neuts (auto) 7.9 H Absolute Lymphs (auto) 0.91 Total Counted Not Reportable Sodium 140 Potassium 4.0 Chloride 108 H Carbon Dioxide 21.0 Anion Gap 11 BUN 73 H Creatinine 3.12 H Estim Creat Clear Calc 14.70 Est GFR (MDRD) Af Amer 19 L Est GFR (MDRD) Non-Af 16 L BUN/Creatinine Ratio 23.4 H Glucose 115 H Calcium 7.7 L POC Glucose 02/06/18 02/06/18 02/06/18 16:44 12:15 06:00 POC Glucose 213 H 143 H 124 H 02/05/18 21:02 POC Glucose 141 H Medical Necessity - Tobacco Use Smoking Status: Former smoker Assessment/Plan All Active Problems (Last Reviewed 02/05/18 @ 12:29 by Alba Zheng PA-C) Renal failure (ARF), acute on chronic (Acute) Hydronephrosis (Acute) Abscess and cellulitis (Resolved) Back pain (Resolved) Vomiting (Resolved) Abdominal pain (Acute) #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 Patient will undergo colonoscopy tomorrow and the following day will undergo a cystoscopy. #2 uncontrolled pain secondary to #1-patient will remain on morphine IV for pain #3 acute kidney injury-possibly secondary to increasing hydronephrosis from tumor, this has improved since yesterday, BMP will be repeated tomorrow #4 hypertension-patient was taken off her lisinopril sometime ago, patient is currently on Norvasc, blood pressure is improved #5 type 2 diabetes-blood sugars will be monitored Code Visit Inpatient E&M: 82812 Subs Hosp L2
--- NOTE | 2018-02-06 22:11 | NURSING ---
Pt. painful, BP 171/75, gave morphine. Will recheck to see if blood pressure needs further intervention after pain controlled.
[2018-02-06 22:40] LABS: Bedside Glucose 217 mg/dL (70-110)
[2018-02-06] MEDS: hydrALAZINE 10 MG Tablet PO (23:47)
[2018-02-06] MEDS: proMETHazine 25 MG/ML Syringe 12.5 MG IV (23:55)
[2018-02-07] VITALS (11 sets, daily range): BP systolic 132–177; BP diastolic 62–95; PULSE 77–87; RESP 14–18; TEMP 36.4–36.9; O2SAT 92–96; BMI 30.8
--- NOTE | 2018-02-07 | IMM_PTH ---
PATIENT: SIMEON STAPLETON LOC: MS3 U#:[id number] AGE/SX: 67/F [facility]: [facility]/04/[address]: Dr. Marc Tadeo DO : 1950 BED: 1 DIS: 02/09/2018 SPEC #: [id number] RECD: 02/09/18 14:15 STATUS: SOUCandace REQ #: [id number] KELLY: 02/07/18 00:[address]: Tiana Mariano DEPT: IMMUNOHISTOCHEMISTRY RECD BY: Radha Villegas ENTERED: 02/09/18 14:17 SP TYPE: IMMUNO OTHR DR: MD Dr. Celestina Brizuela MD Dr. Joseph Prah, MD Dr. Mark Tereletsky, DO Dr. Nicholas F Kotsonis, MD Dr. Tai Chi Kwok, MD Tissues: Urinary bladder, NOS Procedures: CK20 (add) CK5-6 (add) CK8 (add) STEPHENS-2 (add) P40 (add) CDX2 (add) CD44 (add) CK7 (initial) Comments: @ Ordering doctor for CK7 edited from to @ by GONSALO at 02/09/18 1420 @ Ordering doctor for CK20. edited from to @ by GONSALO at 02/09/18 1420 @ Ordering doctor for CK5-6. edited from to @ by GONSALO at 02/09/18 1420 @ Ordering doctor for CK8. edited from to DR.TROBOT Simpson by GONSALO at 02/09/18 1420 @ Ordering doctor for STEPHENS-2. edited from to @ by GONSALO at 02/09/18 1420 @ Ordering doctor for P40. edited from to DR.TROBOT Simpson by GONSALO at 02/09/18 1420 @ Ordering doctor for CDX2. edited from to DR.TROBOT Simpson by GONSALO at 02/09/18 1420 @ Ordering doctor for CD44. edited from to DR.TROBOT Simpson by GONSALO at 02/09/18 1420 @ Submitting doctor edited from to DR.TROBOT Simpson by RGOOD at 02/09/18 1420 PHYSICIAN & [place] [id number] SPECIMEN INFORMATION: Tissue Source: Bladder biopsy of left lateral wall Clinical Info: Adenocarcinoma of colon, pelvic/abdominal pain Specimen Number: [id number] CPT code: 00300, 90307 x7 METHODOLOGY: Deparaffinized sections of prefer/formalin-fixed tissue or PAP/DQ stained slides are incubated with monoclonal/polyclonal antibodies/oligonucleotide probes. Localization is made via biotin free immunoperoxidase method. Appropriate controls are performed and reacted as expected. Results on target cell population are indicated in the following table: RESULTS: ANTIBODY / CLONE RESULT CK7 (OV-TL12/30) negative CK8 (46yrnyV63) positive CK20 (KS20.8) positive anti-CD44 (SP37) positive STEPHENS-2 (SP21) positive CDX2 ([id number]) positive CK5-6 (D5 & 1684) negative P40 (BC28) positive These tests were developed and their performance characteristics determined by [facility]. They may not have been cleared or approved by the U.S. Food and Drug Administration. The FDA has determined that such clearance or approval is not necessary. INTERPRETATION: Bladder biopsy of left lateral wall: Consistent with metastatic poorly differentiated invasive carcinoma. See comment. SAFIA:marisol 02/12/18 Comment: IHC profile favors colonic primary. The tumor is entirely submucosal in location.
--- NOTE | 2018-02-07 00:38 | NURSING ---
Bowel prep completed at 0000, stool is now clear.
--- NOTE | 2018-02-07 02:33 | NURSING ---
Bowel Prep finished at 0000 02/07/2018. Pt. vomitted 700 ML of the bowel prep.
[2018-02-07] MEDS: morphine 10 MG/ML Syringe 6 MG IV ×5 (02:39→20:04)
[2018-02-07] MEDS: 0.9% Normal Saline 1,000 ML 125 ML IV ×3 (04:41→23:59)
[2018-02-07] MEDS: amLODIPine 5 MG Tablet PO (06:10)
[2018-02-07 06:26] LABS: Bedside Glucose 135 mg/dL (70-110)
[2018-02-07 06:40] LABS: Anion Gap 9 (5-15); BUN 70 mg/dL (7-18); Calcium,Total 7.3 mg/dL (8.5-10.1); Chloride 113 mmol/L (98-107); Creatinine, Serum 3.05 mg/dL (0.55-1.02); EST Glomerular Filtration Rate 16 mL/min (>60); Est Glom Filt Rate - Afr Amer 20 mL/min (>60); Estimated Creatinine Clearance 15.03 ml/min; Glucose 131 mg/dL (74-106); Potassium 4.8 mmol/L (3.5-5.1); Sodium Level 140 mmol/L (136-145)
[2018-02-07] MEDS: 0.9% NaCl Peripheral Flush Adult/Peds IV ×2 (09:18→16:57)
[2018-02-07] MEDS: Ciprofloxacin 200 MG/100 ML BAG 100 MG IV (09:28)
--- NOTE | 2018-02-07 09:29 | NURSING ---
Report called to Cami in AC at this time. Pt taken from unit for colonoscopy.
--- NOTE | 2018-02-07 10:15 | COLBX_PTH ---
PATIENT: SIMEON STAPLETON LOC: MS3 U#:[id number] AGE/SX: 67/F ROOM: [facility] [place] [facility] [place]/04/[address]: Dr. Marc Tadeo DO : 1950 BED: 1 DIS: 02/09/2018 SPEC #: [id number] RECD: 02/07/18 12:23 STATUS: YUNIER REQ #: [id number] KELLY: 02/07/18 10:[address]: Tiana Mariano DEPT: SURGICAL PATHOLOGY RECD BY: Abhi Arteaga ENTERED: 02/07/18 14:22 SP TYPE: COLON BX OTHR DR: MD Dr. Celestina Brizuela MD Dr. Joseph Prah, MD Dr. Mark Tereletsky, DO Dr. Nicholas F Kotsonis, MD Dr. Tai Chi Kwok, MD Tissues: A - Descending colon B - Sigmoid colon biopsy C - Descending colon D - Sigmoid colon biopsy E - Rectum, NOS Procedures: Surgery Specimen Level IV Comments: @ Ordering doctor for SUIV edited from to @ by RGOOD at 02/07/18 1541 @ Submitting doctor edited from to @ by RGOOD at 02/07/18 1541 HEADER OPERATION: Colonoscopy (MAC) PRE-OP DIAGNOSIS: Adenocarcinoma of colon, pelvic/abdominal pain TISSUE SUBMITTED: A. Descending colon polyp biopsy at 50 cm, B. Sigmoid colon polyp, C. Descending colon polyp at 55 cm, D. Sigmoid colon biopsies, E. Rectal biopsies MICROSCOPIC DIAGNOSIS A. Descending colon polyp at 50 cm, biopsy: Fragments of tubular adenoma. B. Sigmoid colon polyp, biopsy: Small foci of invasive poorly differentiated adenocarcinoma. See comment. Fragments of tubular adenoma. Fragments of hyperplastic polyp. Fragments of fecal material. C. Descending colon polyp at 55 cm, biopsy: Fragments of tubular adenoma. Fragments of fecal material. D. Sigmoid colon, biopsy: Fragments of tubular adenoma. E. Rectal biopsy: Fragments of hyperplastic polyp. SJ:marisol 02/08/18 COMMENT B. Two foci of invasive adenocarcinoma are noted, submucosal in location, measuring 0.1 and 0.2 cm in greatest dimension.. Please make reference to previous specimen ([id number]), left retroperitoneal mass, CT-guided core biopsy with diagnosis of poorly differentiated adenocarcinoma consistent with colonic primary. This case is discussed with Dr. Tadeo and Dr. Mariano on 02/08/18. Case has been reviewed in consultation with Dr. Mas who concurs with the above diagnosis. IDC:AM MICROSCOPIC DESCRIPTION Slides are reviewed. GROSS DESCRIPTION A - Received in fixative is one container labeled with the patient's name and designated descending colon polyp biopsy. The specimen consists of three irregular fragments of light cook soft tissue that in aggregate measure 0.5 x 0.2 x 0.1 cm. The specimen is totally submitted in one cassette. B - Received in fixative is one container labeled with the patient's name and designated sigmoid polyp biopsy. The specimen consists of multiple irregular fragments of light cook soft tissue mixed with fecal material that in aggregate measure 2.5 x 0.6 x 0.1 cm. The specimen is totally submitted in one cassette. C - Received in fixative is one container labeled with the patient's name and designated descending colon polyp. The specimen consists of multiple irregular fragments of light cook soft tissue mixed with fecal material that in aggregate measure 1 x 0.2 x 0.1 cm. The specimen is totally submitted in one cassette. D - Received in fixative is one container labeled with the patient's name and designated sigmoid colon biopsy. The specimen consists of multiple irregular fragments of light cook soft tissue that in aggregate measure 0.5 x 0.4 x 0.1 cm. The specimen is totally submitted in one cassette. E - Received in fixative is one container labeled with the patient's name and designated rectal biopsy. The specimen consists of multiple irregular fragments of light cook soft tissue that in aggregate measure 1 x 0.3 x 0.1 cm. The specimen is totally submitted in one cassette. / SJ:marisol 02/07/18 TC:0 [facility]: [id number] x5
--- NOTE | 2018-02-07 10:15 | BLA_PTH ---
PATIENT: SIMEON STAPLETON LOC: MS3 U#:[id number] AGE/SX: 67/F ROOM: [facility] [place] [facility] [place]/04/[address]: Dr. Marc Tadeo DO : 1950 BED: 1 DIS: 02/09/2018 SPEC #: [id number] RECD: 02/08/18 14:50 STATUS: YUNIER REQ #: [id number] KELLY: 02/07/18 10:[address]: Tiana Mariano DEPT: SURGICAL PATHOLOGY RECD BY: Richard Dodd ENTERED: 02/09/18 05:00 SP TYPE: BLADDER BX OTHR DR: MD Dr. Celestina Brizuela MD Dr. Joseph Prah, MD Dr. Mark Tereletsky, DO Dr. Nicholas F Kotsonis, MD Dr. Tai Chi Kwok, MD Tissues: Urinary bladder, NOS Procedures: Surgery Specimen Level IV Comments: @ Ordering doctor for SUIV edited from to @ by GONSALO at 02/09/18 0945 @ Submitting doctor edited from to @ by RGOOD at 02/09/18 0945 HEADER OPERATION: Colonoscopy PRE-OP DIAGNOSIS: Adenocarcinoma of colon; pelvic/abdominal pain TISSUE SUBMITTED: Bladder biopsy of left lateral wall MICROSCOPIC DIAGNOSIS Left lateral wall bladder, biopsy: Poorly differentiated metastatic carcinoma. See comment. SAFIA:marisol 02/09/18 COMMENT Immunohistochemistry ([id number]) supports the above diagnosis and favors colonic primary. The tumor is enirely submucosal in location. Please make reference to previous specimen ([id number]), retroperitoneal lymph node, CT-guided core biopsy with diagnosis of moderately poorly differentiated adenocarcinoma with extensive necrosis with IHC comment, IHC favors colonic primary and ([id number]), vickie right colon with diagnosis of poorly differentiated carcinoma. MICROSCOPIC DESCRIPTION Slides are reviewed. GROSS DESCRIPTION Received in fixative is one container labeled with the patient's name and designated bladder biopsy of left lateral wall. The specimen consists of two pieces of cook soft tissue that in aggregate measure 0.5 x 0.2 x 0.1 cm. The entire specimen is submitted in one cassette. / SAFIA:marisol 02/08/18 TC:0 CPT: 15197
--- NOTE | 2018-02-07 11:56 | OP.ENDO_ITS ---
Patient Name: Erica Gil Procedure Date: 02/07/2018 10:13 AM Date of : 1950 Age: 67 Procedure: Colonoscopy Indications: High risk colon cancer surveillance: Personal history of +metastatic cancer in retroperitoneal lymph nodes Providers: Tiana Mariano MD Referring MD: Jayy Alvarez Md Medicines: Monitored Anesthesia Care Patient Profile: Last Colonoscopy: none. The patient's first colonoscopy is today. Complications: No immediate complications. Procedure: Pre-Anesthesia Assessment: - Prior to the procedure, a History and Physical was performed, and patient medications and allergies were reviewed. The patient's tolerance of previous anesthesia was also reviewed. The risks and benefits of the procedure and the sedation options and risks were discussed with the patient. All questions were answered, and informed consent was obtained. Prior Anticoagulants: The patient has taken no previous anticoagulant or antiplatelet agents. ASA Grade Assessment: II - A patient with mild systemic disease. After reviewing the risks and benefits, the patient was deemed in satisfactory condition to undergo the procedure. After I obtained informed consent, the scope was passed under direct vision. Throughout the procedure, the patient's blood pressure, pulse, and oxygen saturations were monitored continuously. The colonoscope was introduced through the anus and advanced to the cecum, identified by the ileocecal valve. The colonoscopy was somewhat difficult due to unsatisfactory bowel prep with fiberous material clogging the scope. The patient tolerated the procedure well. The quality of the bowel preparation was adequate to identify polyps. Scope In: 10:26:49 AM Scope Withdrawal Time 0 hours 57 minutes 33 seconds Scope Out: 11:40:24 AM Total Procedure Duration Time 1 hour 13 minutes 35 seconds Findings: Seven semi-pedunculated polyps were found in the rectum (1), sigmoid colon (4) and descending colon (4). The polyps were 3 to 7 mm in size. These were biopsied with a hot snare for sigmoid polyps/cold forceps for rectal/descending colon polyps for histology. The retroflexed view of the distal rectum and anal verge was normal and showed no anal or rectal abnormalities. Impression: - Seven 3 to 7 mm polyps in the rectum, in the sigmoid colon and in the descending colon. Biopsied. - The distal rectum and anal verge are normal on retroflexion view. Recommendation: - Return patient to hospital [facility] for ongoing care. - Await pathology results. - No recommendation at this time regarding repeat colonoscopy. - The patient has taken no previous anticoagulant or antiplatelet agents and therefore does not require instructions for their resumption. Procedure Code(s): --- Professional --- 64603, Colonoscopy, flexible; with removal of tumor(s), polyp(s), or other lesion(s) by snare technique Diagnosis Code(s): --- Professional --- K62.1, Rectal polyp D12.5, Benign neoplasm of sigmoid colon D12.4, Benign neoplasm of descending colon CPT copyright 2017 [employer]. All rights reserved. The codes documented in this report are preliminary and upon lifestyle coordinator review may be revised to meet current compliance requirements. MD Tiana Blcak MD 02/07/2018 11:55:47 AM This report has been signed electronically. Number of Addenda: 0 Note Initiated On: 02/07/2018 10:13 AM
[2018-02-07 13:01] LABS: Bedside Glucose 147 mg/dL (70-110)
--- NOTE | 2018-02-07 14:27 | CASEMGMT ---
Social Work Note PT had a colonoscopy done today. SW attempted to meet with pt has per H+P pt was recently diagnosed with cancer. Pt soundly sleeping. SW will attempt to meet with pt later today as time allows or follow up with pt tomorrow. Karly Castañeda FOUNDRY EQUIPMENT MECHANIC, MINE SUPERINTENDENT
--- NOTE | 2018-02-07 16:37 | NURSING ---
This RN received call from Mckenzie Shelley from [facility] . She states that she works with Dr. Alvarez and that a PET scan has been scheduled as outpatient MondayFeb.12. She states pt must arrive at outpatient pavilion at 0700 and that she must have nothing to eat 4 hours prior to arrival. She states that this scan MUST be cancelled on Monday if patient will not be discharged as they require a 24 hour notice. She states that she will be working on Monday and we can call her if any questions arise. Dr. Tadeo then called this RN and stated that her upper scope is cancelled for Monday and that patient will be having PET scan outpatient.
[2018-02-07 16:55] LABS: Bedside Glucose 90 mg/dL (70-110)
--- NOTE | 2018-02-07 17:47 | PCM.PROGNOTE ---
Patient Problems: Active and Suspected Problems (Last Reviewed 02/05/18 @ 12:29 by Alba Zheng PA-C) Renal failure (ARF), acute on chronic (Acute) Hydronephrosis (Acute) Abdominal pain (Acute) Subjective: Patient was seen and examined today, she underwent a colonoscopy which did not show evidence of a neoplasm, there was only small polyps which were removed. These will be sent in for pathology. I received word late this afternoon that oncology feels that the patient could undergo an outpatient PET scan to try to locate the origin of her metastatic adenocarcinoma. Tomorrow patient will undergo cystoscopy and possible stent placement. Patient's creatinine has dropped today slightly. - Physical Exam General: Alert, Oriented x3, Cooperative, No apparent distress, Well developed, Well nourished HEENT: Atraumatic, PERRLA, EOMI, Normocephalic Oral: Moist Mucosa Neck: Supple, No Nuchal Rigidity, Trachea Midline, Thyroid Normal Size and Texture Lungs: Clear to auscultation, Normal air movement, No rhonchi, No wheeze, No rales Cardiovascular: Regular rate, Regular Rhythm, Normal S1, Normal S2, No murmurs, No Ectopic Activity, PMI Normal, No rub noted, No Gallop Abdomen: Bowel Sounds Present, Soft, Non Tender, Non-Distended Extremities: No edema, Capillary Refill Less than 3 Seconds Skin: No rashes, No breakdown Musculoskeletal: No Tenderness to Palpation of Joints or Extremities Neurological: Cranial nerves II-XII grossly intact, Neuro grossly intact, Sensory exam intact to light touch and pain, Coordination normal Psych/Mental Status: Normal Affect, Appropriate, Alert and oriented to time, place, person, mood and affect Vital Signs Temp Pulse Resp BP Pulse Ox 97.8 F 85 18 152/66 H 94 02/07/18 16:47 02/07/18 16:47 02/07/18 16:47 02/07/18 16:47 02/07/18 16:47 Oxygen Delivery Method Room Air Weight: 81.5 kg Body Mass Index (BMI) 30.8 Finger Stick Blood Glucose 181 Intake and Output for Last 24 Hours 02/05/18 02/06/18 02/07/18 23:59 23:59 23:59 Intake Total 3531 / 3531 5998 / 5998 5964 / 5964 Output Total 625 / 625 600 / 600 700 / 700 Balance 2906 / 2906 5398 / 5398 5264 / 5264 Laboratory Tests Past 24 Hrs 02/07/18 05:45 Sodium 140 Potassium 4.8 Chloride 113 H Carbon Dioxide 18.0 L Anion Gap 9 BUN 70 H Creatinine 3.05 H Estim Creat Clear Calc 15.03 Est GFR (MDRD) Af Amer 20 L Est GFR (MDRD) Non-Af 16 L BUN/Creatinine Ratio 23.0 H Glucose 131 H Calcium 7.3 L POC Glucose 02/07/18 02/07/18 02/07/18 16:48 12:54 06:14 POC Glucose 90 147 H 135 H 02/06/18 21:28 POC Glucose 217 H Medical Necessity - Tobacco Use Smoking Status: Former smoker Assessment/Plan All Active Problems (Last Reviewed 02/05/18 @ 12:29 by Alba Zheng PA-C) Renal failure (ARF), acute on chronic (Acute) Hydronephrosis (Acute) Abscess and cellulitis (Resolved) Back pain (Resolved) Vomiting (Resolved) Abdominal pain (Acute) #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-primary site is unknown at this time, patient will have an outpatient PET scan and follow-up with oncology #2 uncontrolled pain secondary to #1-patient will remain on morphine IV for pain, I will need to adjust the patient's oral pain medications before discharge home #3 acute kidney injury-possibly secondary to increasing hydronephrosis from tumor, this has improved since yesterday, patient will undergo cystoscopy tomorrow with possible stent placement in the ureters #4 hypertension-patient was taken off her lisinopril sometime ago, patient is currently on Norvasc, blood pressure is improved #5 type 2 diabetes-blood sugars will be monitored Code Visit Inpatient E&M: 41284 Subs Hosp L2
[2018-02-07] MEDS: Docusate Sodium 100 MG Capsule PO (21:40)
[2018-02-07] MEDS: oxyCODONE HCl Cr 10 MG Tablet PO (21:43)
[2018-02-07 22:36] LABS: Bedside Glucose 149 mg/dL (70-110)
[2018-02-08] VITALS (14 sets, daily range): BP systolic 126–194; BP diastolic 53–76; PULSE 78–96; RESP 16–18; TEMP 36.1–37.1; O2SAT 92–98; BMI 30.8
[2018-02-08] MEDS: morphine 10 MG/ML Syringe 6 MG IV ×3 (02:12→19:26)
--- NOTE | 2018-02-08 06:00 | EKG12_ITS ---
Test Reason : PRE OP Blood Pressure : / mmHG Vent. Rate : 081 BPM Atrial Rate : 080 BPM P-R Int : 000 ms QRS Dur : 074 ms QT Int : 356 ms P-R-T Axes : 000 058 061 degrees QTc Int : 413 ms Normal sinus rhythm Low voltage QRS Septal infarct , age undetermined Abnormal ECG Confirmed by KASSIDY STOVALL, CHENCHO ([id number]), research editor CRISTINA HICKMAN ([id number]) on 02/13/2018 2:47:51 PM Referred By: Jayy Alvarez Confirmed By:CHENCHO YI MD
[2018-02-08 06:51] LABS: Bedside Glucose 113 mg/dL (70-110)
[2018-02-08 07:46] LABS: Hemoglobin A1c 8.9 % (4.2-6.3)
[2018-02-08] MEDS: 0.9% Normal Saline 1,000 ML 125 ML IV ×3 (07:56→22:28)
[2018-02-08] MEDS: amLODIPine 5 MG Tablet PO (07:57)
[2018-02-08] MEDS: oxyCODONE HCl Cr 10 MG Tablet PO ×2 (07:58→22:23)
[2018-02-08 12:10] LABS: Bedside Glucose 125 mg/dL (70-110)
--- NOTE | 2018-02-08 12:31 | NURSING ---
report called to Cami in [facility] for surgery.
[2018-02-08] MEDS: Ciprofloxacin 200 MG/100 ML BAG 100 MG IV (12:52)
--- NOTE | 2018-02-08 13:00 | CASEMGMT ---
Social Work Note SW attempted to see pt. Pt currently off floor for procedure. SW will attempt to see pt later today or tomorrow. Karly Castañeda FLIGHT SERVICE AGENT, EMPLOYMENT CASE MANAGER
[2018-02-08] MEDS: Lubricating Jelly 60 GM Tube 30 GM TOPICAL (14:15)
--- NOTE | 2018-02-08 14:34 | PCM.IMDPSTOP ---
Problem List (1) Renal failure (ARF), acute on chronic Status: Acute (2) Hydronephrosis Status: Acute Qualifiers: Hydronephrosis type: unspecified Qualified Code(s): N13.30 - Unspecified hydronephrosis (3) Metastatic adenocarcinoma Status: Chronic Immediate Post-Op Note Date of Procedure: 02/08/18 Primary Surgeon/Physician: Celestina Gruber MD hypertrichologist: Celestina Gruber Pre-Operative Diagnosis: ureteral obstruction, hydronephrosis with renal failure. Post-Operative Diagnosis: same Surgery/Procedure Performed:: cystoscopy, bilateral retrograde pyelograms, bilateral ureteral stent insertion, bladder biopsy with fulguration Description of Surgical Findings:: bilateral compression of ureters with hydroureter, and right hydronephrosis. bladder wall thickening on the left with no bladder mass, but appears edematous. bladder biopsy of left wall taken. Estimated Blood Loss: 2cc Specimen's removed: bladder biopsy left wall. - Admit VTE Documentation VTE Present on Admission: Yes VTE Mechan Device Prophylaxis: SCD's VTE Pharm Prophylaxis ordered?: No Reason prophylaxis not ordered:: Treatment Not Indicated
--- NOTE | 2018-02-08 14:37 | OP.PN_ITS ---
Problem List (1) Renal failure (ARF), acute on chronic Status: Acute (2) Hydronephrosis Status: Acute Qualifiers: Hydronephrosis type: unspecified Qualified Code(s): N13.30 - Unspecified hydronephrosis (3) Metastatic adenocarcinoma Status: Chronic Immediate Post-Op Note Date of Procedure: 02/08/18 Primary Surgeon/Physician: Celestina Gruber MD guest services director: Celestina Gruber Pre-Operative Diagnosis: ureteral obstruction, hydronephrosis with renal failure. Post-Operative Diagnosis: same Surgery/Procedure Performed:: cystoscopy, bilateral retrograde pyelograms, bilateral ureteral stent insertion, bladder biopsy with fulguration Description of Surgical Findings:: bilateral compression of ureters with hydroureter, and right hydronephrosis. bladder wall thickening on the left with no bladder mass, but appears edematous. bladder biopsy of left wall taken. Estimated Blood Loss: 2cc Specimen's removed: bladder biopsy left wall. - Admit VTE Documentation VTE Present on Admission: Yes VTE Mechan Device Prophylaxis: SCD's VTE Pharm Prophylaxis ordered?: No Reason prophylaxis not ordered:: Treatment Not Indicated
--- NOTE | 2018-02-08 14:37 | PCM.OPRPT ---
Problem List (1) Renal failure (ARF), acute on chronic Status: Acute (2) Hydronephrosis Status: Acute Qualifiers: Hydronephrosis type: unspecified Qualified Code(s): N13.30 - Unspecified hydronephrosis (3) Metastatic adenocarcinoma Status: Chronic Report of Operation Date of Procedure: 02/08/18 Pre-Operative Diagnosis: ureteral obstruction, hydronephrosis with renal failure. Post-Operative Diagnosis: same Surgery/Procedure Performed:: cystoscopy, bilateral retrograde pyelograms, bilateral ureteral stent insertion, bladder biopsy with fulguration Description of Surgical Findings:: bilateral compression of ureters with hydroureter, and right hydronephrosis. bladder wall thickening on the left with no bladder mass, but appears edematous. bladder biopsy of left wall taken. board liner operator: Celestina Gruber Type of Anesthesia:: General Special Medications: cipro 200mg. Specimen's removed: bladder biopsy left wall. Estimated Blood Loss (mL): 2cc Description of Procedure: The patient is a 67-year-old female that I saw in the office approximately 2-3 weeks ago with right-sided hydronephrosis and elevation of creatinine. She was identified as having lymphadenopathy and underwent a CT-guided biopsy of her lymph node. He was found to have adenocarcinoma in this lymph node. She was subsequently admitted to the hospital with uncontrolled abdominal pain. I was consulted again for increasing hydronephrosis and elevation of her creatinine. She had a colonoscopy yesterday where some polyps were removed and we await formal pathology results. She presents today for cystoscopy and insertion of bilateral ureteral stents for treatment of her renal failure and hydronephrosis. Her bladder is thickened on CT scan and I plan to biopsy this as well. Patient was taken to the operating room and placed on the operating room table. Anesthesia monitored the head, neck, airway, vital signs and IV access throughout the case. Once anesthesia was appropriately administered the patient was placed into dorsal lithotomy position and was prepped and draped in usual sterile fashion. A cystourethroscopy was then performed which revealed normal bladder mucosa with edematous changes on the left bladder wall. There is no area of papillary lesion identified. Pyelograms were performed using an 8 Tanzanian cone tipped catheter. Bilaterally the ureters appeared to be compressed externally and hydro-dilated. The left ureter J hooked at the area of the bladder. The left kidney did not appear to be hydronephrotic but the distal ureter was significantly dilated. On the right side the renal pelvis and calyces did appear to be dilated in addition to areas of the ureter. Bilateral 6 Tanzanian 24 cm double-J stents were inserted without difficulty. This time a bladder wall biopsy of the left side where the edema was identified was taken in this area was fulgurated for hemostatic control. The patient was then awakened and taken to the recovery room in good condition. There were no complications during this procedure. Grafts/Implants Used: 6x24 JJ stents inserted bilaterally - Complications none - Admit VTE Documentation VTE Present on Admission: Yes VTE Mechan Device Prophylaxis: SCD's VTE Pharm Prophylaxis ordered?: No Reason prophylaxis not ordered:: Treatment Not Indicated
[2018-02-08 14:56] LABS: Bedside Glucose 115 mg/dL (70-110)
[2018-02-08] MEDS: oxyCODONE 5 MG Tablet PO ×2 (16:26→20:32)
[2018-02-08] MEDS: hydrALAZINE 10 MG Tablet PO (16:26)
--- NOTE | 2018-02-08 16:39 | PN_ITS ---
Patient Problems: Active and Suspected Problems (Last Reviewed 02/05/18 @ 12:29 by Alba Zheng PA-C) Renal failure (ARF), acute on chronic (Acute) Hydronephrosis (Acute) Abdominal pain (Acute) Subjective: Patient was seen and examined today, I talked at length with her and her , she underwent a cystoscopy today which does not show the presence of any mass in her bladder, stents were able be placed by urology. Patient's BMP will be repeated tomorrow morning. Additional note, I received a call from pathology today that told me that on a polyp specimen that was removed yesterday, there was noted be adeno CA of the colon. I relayed this information to the patient's oncologist as well as the patient and the patient's family and - Physical Exam General: Alert, Oriented x3, Cooperative, No apparent distress, Well developed, Well nourished HEENT: Atraumatic, PERRLA, EOMI, Normocephalic Oral: Moist Mucosa Neck: Supple, No Nuchal Rigidity, Trachea Midline, Thyroid Normal Size and Textu re Lungs: Clear to auscultation, Normal air movement, No rhonchi, No wheeze, No rales Cardiovascular: Regular rate, Regular Rhythm, Normal S1, Normal S2, No murmurs, PMI Normal, No rub noted, No Gallop Abdomen: Bowel Sounds Present, Soft, Non Tender, Non-Distended Extremities: No clubbing, No cyanosis, No edema, Capillary Refill Less than 3 Seconds Skin: No rashes, No breakdown Neurological: Cranial nerves II-XII grossly intact, Neuro grossly intact, Sensory exam intact to light touch and pain, Coordination normal Psych/Mental Status: Normal Affect, Appropriate, Alert and oriented to time, place, person, mood and affect Vital Signs Temp Pulse Resp BP Pulse Ox 97.5 F L 96 16 194/55 H 95 02/08/18 16:30 02/08/18 16:30 02/08/18 16:30 02/08/18 16:30 02/08/18 16:30 Oxygen Flow Rate (L/min) 2 Oxygen Delivery Method Room Air Weight: 81.5 kg Body Mass Index (BMI) 30.8 Finger Stick Blood Glucose 115 Intake and Output for Last 24 Hours 02/06/18 02/07/18 02/08/18 23:59 23:59 23:59 Intake Total 5998 / 5998 6764 / 6764 3393 / 3393 Output Total 600 / 600 800 / 800 800 / 800 Balance 5398 / 5398 5964 / 5964 2593 / 2593 Laboratory Tests Past 24 Hrs 02/08/18 05:55 Hemoglobin A1c 8.9 H POC Glucose 02/08/18 02/08/18 02/08/18 14:52 11:59 06:38 POC Glucose 115 H 125 H 113 H 02/07/18 02/07/18 21:36 16:48 POC Glucose 149 H 90 Medical Necessity - Tobacco Use Smoking Status: Former smoker Assessment/Plan All Active Problems (Last Reviewed 02/05/18 @ 12:29 by Alba Zheng PA-C) Renal failure (ARF), acute on chronic (Acute) Hydronephrosis (Acute) Abscess and cellulitis (Resolved) Back pain (Resolved) Vomiting (Resolved) Abdominal pain (Acute) #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 Patient is scheduled for a PET scan Monday and then she is due to see Dr. Alvarez on next Monday. #2 uncontrolled pain secondary to #1-patient will remain on morphine IV for pain, I will need to adjust the patient's oral pain medications before discharge home #3 acute kidney injury-possibly secondary to increasing hydronephrosis from tumor, there is only been minor improvement in the patient's creatinine, hopefully this will improve with the insertion of a stent today. BMP will be repeated tomorrow #4 hypertension-patient was taken off her lisinopril sometime ago, patient is currently on Norvasc, blood pressure is improved #5 type 2 diabetes-blood sugars will be monitored Code Visit Inpatient E&M: 81518 Subs Hosp L2
[2018-02-08] MEDS: 0.9% NaCl Peripheral Flush Adult/Peds IV (19:27)
[2018-02-08] MEDS: Docusate Sodium 100 MG Capsule PO (22:23)
[2018-02-08] MEDS: Heparin Injection (Vial) 5,000 UNIT/ML VIAL 5000 UNIT SC (22:23)
[2018-02-08] MEDS: Insulin Lispro 100 UNIT/ML INSULN.PEN SQ (22:25)
[2018-02-08 22:35] LABS: Bedside Glucose 167 mg/dL (70-110)
[2018-02-09] MEDS: oxyCODONE 5 MG Tablet PO ×4 (00:49→17:03)
[2018-02-09 02:50] VITALS: BP 145/63; PULSE 74; RESP 16; TEMP 36.8; O2SAT 97
[2018-02-09] MEDS: morphine 10 MG/ML Syringe 6 MG IV (02:52)
[2018-02-09] MEDS: 0.9% NaCl Peripheral Flush Adult/Peds IV (02:52)
[2018-02-09 06:24] LABS: Absolute Neutrophil Count 7.1 X10^3/uL (2.0-7.7); Anion Gap 9 (5-15); BUN 65 mg/dL (7-18); BUN/Creat Ratio 21.7 RATIO (10-20); Basophil# 0.02 X10^3/uL; Basophil% 0.2 % (0-1); Calcium,Total 7.3 mg/dL (8.5-10.1); Chloride 112 mmol/L (98-107); Creatinine, Serum 2.99 mg/dL (0.55-1.02); EST Glomerular Filtration Rate 17 mL/min (>60); Eosinophil# 0.56 X10^3/uL; Eosinophils% 5.7 % (0-5); Est Glom Filt Rate - Afr Amer 20 mL/min (>60); Estimated Creatinine Clearance 15.33 ml/min; Glucose 140 mg/dL (74-106); Hematocrit 29.3 % (37-47); Hemoglobin 9.4 g/dl (12.0-15.0); Lymphocyte % 12.2 % (19-41); Mean Corp Hgb Conc 32.1 g/gl (32-36); Mean Corpuscular Hgb 28.8 pg (27.0-32.0); Mean Corpuscular Volume 89.9 fL (81-99); Mean Platelet Vol. 8.2 fl (6.2-12.0); Monocyte# 0.98 X10^3/uL; Monocyte% 9.9 % (0-10); Neutrophil # 7.06 X10^3/uL (2.7-7.7); Neutrophil % 71.7 % (47-70); Platelet Count 423 K/mm3 (150-450); Potassium 4.4 mmol/L (3.5-5.1); RBC Distribution Width CV 13.8 % (11.6-14.6); RBC Distribution Width SD 44.3 fl (35.1-43.9); Red Blood Count 3.26 M/mm3 (4.2-5.4); Sodium Level 140 mmol/L (136-145); White Blood Count 9.9 K/mm3 (4.4-11.0)
[2018-02-09 06:25] LABS: POSITIVE COUNT NO; POSITIVE DIFFERENTIAL NO; POSITIVE MORPHOLOGY NO
[2018-02-09] MEDS: 0.9% Normal Saline 1,000 ML 125 ML IV (06:33)
[2018-02-09 06:41] LABS: Bedside Glucose 130 mg/dL (70-110)
[2018-02-09 08:40] VITALS: BP 171/60; PULSE 81; RESP 16; TEMP 36.5; O2SAT 95
[2018-02-09] MEDS: oxyCODONE HCl Cr 10 MG Tablet PO (08:51)
[2018-02-09] MEDS: Docusate Sodium 100 MG Capsule PO (08:53)
[2018-02-09] MEDS: Polyethylene Glycol 3350 17 GM PACKET PO (08:53)
[2018-02-09] MEDS: amLODIPine 5 MG Tablet PO (08:53)
[2018-02-09] MEDS: Heparin Injection (Vial) 5,000 UNIT/ML VIAL 5000 UNIT SC (08:54)
--- NOTE | 2018-02-09 09:42 | CASEMGMT ---
Social Work Note BETTE met with pt as pt was recently diagnosed with cancer a few weeks ago. Pt states that she lives with her and has three boys close by and a daughter in law who is able to help when needed. Pt states that she has a very supportive family and she feels supportive. SW approached topic of recent diagnosis of cancer. Pt states it is what it is. Pt states she thinks she is doing ok. Pt states that she thinks her family is having a hard time coping with the diagnosis. SW educated pt on cancer resources and support groups. Pt denied needing resources at this time. SW encouraged pt that if she thinks of anything she needs to let the staff know. Pt states understanding. Karly Castañeda AIR TRAFFIC CONTROL EQUIPMENT REPAIRER, ELECTRICAL SIGN SERVICER
[2018-02-09] MEDS: Insulin Lispro 100 UNIT/ML INSULN.PEN SQ ×2 (11:23→16:58)
[2018-02-09 11:31] LABS: Bedside Glucose 158 mg/dL (70-110)
--- NOTE | 2018-02-09 11:50 | DCINST_ITS ---
- Discharge Diagnoses Current Active Problems: Current Active and Chronic Problems (Last Reviewed 02/05/18 @ 12:29 by Alba Zheng PA-C) Renal failure (ARF), acute on chronic (Acute) Hydronephrosis (Acute) CKD (chronic kidney disease) (Chronic) Abdominal pain (Acute) You will use the following diet at home:: No restrictions Your food should be the consistency of: Regular Your liquids should be the consistency of: Regular/Thin Discharge Activity: Return to Normal Activity Weight Bearing Status: Full weight bearing Allergies/Adverse Reactions: Allergies codeine Allergy (Verified 02/04/18 20:46) Other iodine Allergy (Verified 02/04/18 20:46) Other Penicillins Allergy (Verified 02/04/18 20:46) Hives PAPER TAPE Allergy (Uncoded 02/04/18 20:46) Rash Medications to take at Discharge Amlodipine [Norvasc] 5 mg PO DAILY #30 tab 02/09/18 Ciprofloxacin [Cipro] 250 mg PO BID #12 tab 02/09/18 Docusate Sodium [Colace] 100 mg PO BID capsule 02/09/18 Oxycodone CR [Oxycontin] 20 mg PO Q12H 7 Days #28 tab 02/09/18 Oxycodone [Oxyir] 5 - 10 mg PO Q4H PRN PRN 7 Days #30 tab 02/09/18 Polyethylene Glycol 3350 [Miralax] 17 gm PO DAILY packet 02/09/18 The following prescriptions were given: Oxycodone [Oxyir] 5 - 10 mg PO Q4H PRN PRN 7 Days #30 tab PRN Reason: Severe Pain (6-10/10) Amlodipine [Norvasc] 5 mg PO DAILY #30 tab Oxycodone CR [Oxycontin] 20 mg PO Q12H 7 Days #28 tab Ciprofloxacin [Cipro] 250 mg PO BID #12 tab Primary Care Physician: Nii Mc Chi, MD [Primary Care Provider] - Please follow up with your Primary Care Physician in: in 2 weeks Test Results: Test results from this visit will be discussed in further detail at your follow- up appointment, if applicable. Please Follow Up With: Jayy Alvarez MD When: next Monday Please Follow Up With: Celestina Gruber MD When: as directed
--- NOTE | 2018-02-09 12:10 | CASEMGMT ---
Pt requesting BSC. Script obtained and faxed to [facility] [employer] They confirmed fax was received. [facility] informed they do not deliver same-day and that pt would need to pick it up at their store in [place] if they want it prior to Monday. Pt and stated they would like it delivered. [facility] made aware and they stated they will contact the patient to make delivery arrangements. Marycruz MCCONNELLN MARIA G CM
[2018-02-09 14:40] VITALS: BP 137/63; PULSE 85; RESP 18; TEMP 36.7; O2SAT 97
--- NOTE | 2018-02-09 15:35 | CASEMGMT ---
Addendum entered by Thomas Dang 02/12/18 10:33: On 03/11/18 [facility] spoke with pt and about SNF and they both stated they wished for PT to discharge home and not interested in SNF at this time. Original Note: [facility] B[facility] NOTE: PT/OT evaluation completed and recommendations made. See PT/OT eval. Pt and both agreeable for [facility] and voice no preference on agency. [facility] unable to take pt d/t [facility] is not in network. [employer] [facility] states unable to get auth today. Referral packet sent to [facility]. Awaiting insurance approval for acceptance. Pt and both made aware. Reviewed all follow up appts with pt, , and family member in room and all questions answered. Marycruz ALEXANDRE RN, CM
--- NOTE | 2018-02-09 16:25 | CASEMGMT ---
RN CM NOTE: Call placed to [facility]. Confirmation received that insurance approval has been obtained and they are able to take pt with [facility] 02-10-18. Pt and made aware. Marycruz ALEXANDRE RN CM
[2018-02-09 17:11] LABS: Bedside Glucose 169 mg/dL (70-110)
--- NOTE | 2018-02-09 17:48 | DS.PCM_ITS ---
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 #2 uncontrolled pain secondary to #1 #3 acute kidney injury-possibly secondary to increasing hydronephrosis from metastatic adenocarcinoma of the colon #4 hypertension #5 type 2 diabetes #6 generalized debility secondary to metastatic adenocarcinoma of the colon #7 anemia of chronic disease - Secondary Discharge Diagnosis Chronic Problems (Last Reviewed 02/05/18 @ 12:29 by Alba Zheng PA-C) Hypertension (Chronic) Hypothyroid (Chronic) Hyperlipemia (Chronic) Chronic back pain (Chronic) DM type 2 (diabetes mellitus, type 2) (Chronic) Metastatic adenocarcinoma (Chronic) 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 Patient was recently diagnosed with stage IV adenocarcinoma which appears to be of colonic origin, biopsy was performed the first part of January 2018 on a retroperitoneal lymph nodes. Patient has not had any treatment for the carcinoma she is due to see an oncologist tomorrow. Patient has been on narcotics as an outpatient but she states the abdominal pain was too severe and she came to the ER for evaluation. Evaluation in the ER i ncluded labs which showed an elevated BUN of 76, creatinine was 3.59, hemoglobin was 11.3. CT of the pelvis showed retroperitoneal and mesenteric lymphadenopathy and worsening right hydroureteronephrosis. Patient was admitted to [facility], she was given IV fluids, she was also seen in consultation by oncology and urology. In addition, patient underwent a colonoscopy which identified several polyps 1 of which had adenocarcinoma. Patient received PT and OT, urology performed a cystoscopy and performed bilateral ureteral stent placements. Patient's pain was controlled on long-acting opiates and short acting narcotics. On 02/09/18, physical examination was performed: HEENT-thyroid is of normal size, no thyroid nodules were noted, no JVD was noted. Lungs-lungs were clear to auscultation apex to base bilaterally, no rhonchi, rales, or wheezes were noted. Patient was in no respiratory distress. Heart-heart rate and rhythm is regular, no ectopy was noted, no murmurs were noted, patient was not tachycardic or bradycardic. Abdomen-abdomen was soft, there was mild abdominal tenderness to palpation over the lower abdominal quadrants, no rebound abdominal tenderness was noted. Neuro-cranial nerves II through XII are grossly intact, no focal neuro deficits were noted, sensation to light touch and pinprick was intact. Psych-patient is alert and oriented x3, she has flat affect, she does not appear agitated or anxious. Patient was felt to be stable for discharge on 02/09/18, she will be set up for home care including physical therapy, she was scheduled to undergo a PET scan on 02/12/18 and have an appointment with her oncologist on 02/13/18. Discharge Activity: Return to Normal Activity Weight Bearing Status: Full weight bearing Home Medications: Medications to take at Discharge Amlodipine [Norvasc] 5 mg PO DAILY #30 tab 02/09/18 Ciprofloxacin [Cipro] 250 mg PO BID #12 tab 02/09/18 Docusate Sodium [Colace] 100 mg PO BID capsule 02/09/18 Oxycodone CR [Oxycontin] 20 mg PO Q12H 7 Days #28 tab 02/09/18 Oxycodone [Oxyir] 5 - 10 mg PO Q4H PRN PRN 7 Days #30 tab 02/09/18 Polyethylene Glycol 3350 [Miralax] 17 gm PO DAILY packet 02/09/18 Following Prescrptions Were Given to Patient: Oxycodone [Oxyir] 5 - 10 mg PO Q4H PRN PRN 7 Days #30 tab PRN Reason: Severe Pain (6-10/10) Amlodipine [Norvasc] 5 mg PO DAILY #30 tab Oxycodone CR [Oxycontin] 20 mg PO Q12H 7 Days #28 tab Ciprofloxacin [Cipro] 250 mg PO BID #12 tab Primary Care Physician: Nii Mc Chi, MD [Primary Care Provider] - Please follow up with your Primary Care Physician in: in 2 weeks Please Follow Up With: Jayy Alvarez MD When: next Monday Please Follow Up With: Celestina Gruber MD When: as directed Disposition: Home with Home Health Minutes spent on discharge:: 34 Patient Condition:: Stable Medical Necessity - Tobacco Use Smoking Status: Former smoker Meaningful Use Info Meaningful Use Diagnoses (Choose all that apply): None applicable Code Visit Inpatient E&M: 76842 Disch Hosp
== END 2018-02-09 17:25 | disposition home health service (06) | DRG 988 ==
LOC: ED 22:31 → MS3 02-05 00:01
PROVIDERS: Anesthesiology; Surgery; Urology; Admitting Provider Family Medicine; Emergency Provider Emergency Medicine; Family Provider Family Medicine Geriatric Medicine; PCP Family Medicine Geriatric Medicine; Referring Provider Internal Medicine Medical Oncology; Visit Provider Internal Medicine
PROC: 0DJD8ZZ Inspection of Lower Intestinal Tract, Via Natural or Artificial Opening Endoscopic (ICD-10-PCS; CPT 45378; principal; 2018-02-07 10:10)
PROC: 0TBB8ZX Excision of Bladder, Via Natural or Artificial Opening Endoscopic, Diagnostic (ICD-10-PCS; CPT 52332; principal; 2018-02-08 13:20)
DX: C18.9 Malignant neoplasm of colon, unspecified; C78.1 Secondary malignant neoplasm of mediastinum; C78.6 Secondary malignant neoplasm of retroperitoneum and peritoneum; N17.9 Acute kidney failure, unspecified; N13.1 Hydronephrosis with ureteral stricture, not elsewhere classified; G89.3 Neoplasm related pain (acute) (chronic); D63.8 Anemia in other chronic diseases classified elsewhere; E03.9 Hypothyroidism, unspecified; E78.5 Hyperlipidemia, unspecified; M54.9 Dorsalgia, unspecified; G89.29 Other chronic pain; I12.9 Hypertensive chronic kidney disease with stage 1 through stage 4 chronic kidney disease, or unspecified chronic kidney disease; E11.22 Type 2 diabetes mellitus with diabetic chronic kidney disease; N18.9 Chronic kidney disease, unspecified; Z87.891 Personal history of nicotine dependence
CPT/HCPCS: 36415; 71250; 74176; 76000; 80048; 80053; 81001; 82962; 83036; 83690; 85025; 88305; 88341; 88342; 93005; 97162; 97165; 97802; 99282; J7030; A4216; C1769; C2617; J0744; J1610; J2405

== ENCOUNTER 2018-02-10 02:48 | Observation (INO) | payer MEDICARE, SELFPAY ==
[2018-02-10 02:49] VITALS: BP 190/63; PULSE 101; RESP 16; TEMP 36.4; O2SAT 91; BMI 36.5
--- NOTE | 2018-02-10 02:59 | EKG12_ITS ---
Test Reason : FALL Blood Pressure : / mmHG Vent. Rate : 091 BPM Atrial Rate : 091 BPM P-R Int : 184 ms QRS Dur : 088 ms QT Int : 352 ms P-R-T Axes : 023 021 061 degrees QTc Int : 432 ms Normal sinus rhythm Low voltage QRS (limb leads) Nonspecific T wave abnormality Abnormal ECG Confirmed by SHAYNA STOVALL, [place] ([id number]), editorial clerk CRISTINA HICKMAN ([id number]) on 02/12/2018 3:09:09 PM Referred By: THOR Confirmed By:KY CORRAL MD
--- NOTE | 2018-02-10 03:02 | ED.RN ---
UNABLE TO PULL OLD EKG FROM TWO DAYS AGO, NOT CONFIRMED IN MUSE
--- NOTE | 2018-02-10 03:34 | ED.VISSUMM ---
- ER Visit Summary Date of Service: 02/10/18 Chief Complaint: Weakness, fall History of Present Illness: The patient is a 67 F continued weakness since being discharged over 12 hours ago. Patient had a 4-day stay. Patient with metastatic colon cancer, found to have hydro-nephrosis, patient underwent bilateral ureteral stent by urology. Discussed with patient and significant other, she had option of going home versus rehab earlier, he decided to take her home, states took her 30 minutes to get in the house. She is with a chair since being home. She states she needed to go the restroom, she is try, however is too weak and skidded off the chair. There is no injuries. No chest pains or shortness of breath. History of chronic kidney disease followed by Dr. Cami Montenegro. Denies any cough. Denies urine symptoms. Physical Examination: General: Alert and oriented ?3, no acute distress HEENT: Normocephalic, atraumatic. Moist mucosa membranes Neck: supple, nontender. Cardiovascular: Regular rate and rhythm, no murmurs Respiratory: Normal breath sounds, symmetric, no distress Abdomen: Soft, nontender, nondistended Extremities: Nontender, no edema, pulses intact ?4 Neuro: no focal neurological deficits. Test Results: EKG sinus rate of [address] or T wave changes. WBC 13.6. Hemoglobin 10.6. Creatinine 3.06. Potassium 4.6. Glucose 144. UA pending. Emergency Department Course and Treatment: Patient with generalized weakness, fall today with no injuries. Patient tried going home after 4-day stay, unable to with care of spouse. I did check labs, chronic anemia along with chronic kidney disease. White count slightly elevated from earlier today. She has no cough. I did send for urine that is pending. Patient will need skilled care versus rehab. Hospitalist on page for discussion. Treatment Plan: [] Disposition: Admission Impression: 1. Weakness 2. Chronic kidney disease 3. Chronic anemia 4. Metastatic colon cancer This note was generated with [employer] dictation software. It may contain incorrect words, spelling, and punctuation that were not noted in review of the chart prior to signing ED Disposition - Plan for ED Patient: Disposition: Acute Care Hospital [facility] Chief Complaint: Fall Diagnosis: Metastatic adenocarcinoma, CKD (chronic kidney disease), Weakness, Chronic anemia Referrals: Nii Mc Chi, MD [Primary Care Provider] -
[2018-02-10 03:43] LABS: Anion Gap 12 (5-15); BUN 69 mg/dL (7-18); BUN/Creat Ratio 22.5 RATIO (10-20); Calcium,Total 8.2 mg/dL (8.5-10.1); Chloride 110 mmol/L (98-107); Creatinine, Serum 3.06 mg/dL (0.55-1.02); EST Glomerular Filtration Rate 16 mL/min (>60); Est Glom Filt Rate - Afr Amer 19 mL/min (>60); Estimated Creatinine Clearance 14.98 ml/min; Glucose 144 mg/dL (74-106); Potassium 4.6 mmol/L (3.5-5.1); Sodium Level 140 mmol/L (136-145)
[2018-02-10 04:28] LABS: Absolute Lymphocyte Count 1.11 X10^3/ul (0.83-4.51); Absolute Neutrophil Count 11.1 X10^3/uL (2.0-7.7); Basophil# 0.03 X10^3/uL; Basophil% 0.2 % (0-1); Eosinophil# 0.29 X10^3/uL; Eosinophils% 2.1 % (0-5); Hematocrit 33.8 % (37-47); Hemoglobin 10.6 g/dl (12.0-15.0); Lymphocyte # 1.11 X10^3/ul (4.0); Lymphocyte % 8.2 % (19-41); Mean Corp Hgb Conc 31.4 g/gl (32-36); Mean Corpuscular Volume 92.3 fL (81-99); Monocyte# 1.01 X10^3/uL; Monocyte% 7.5 % (0-10); Neutrophil # 11.08 X10^3/uL (2.7-7.7); Neutrophil % 81.8 % (47-70); Platelet Count 436 K/mm3 (150-450); RBC Distribution Width CV 14.1 % (11.6-14.6); RBC Distribution Width SD 47.7 fl (35.1-43.9); Red Blood Count 3.66 M/mm3 (4.2-5.4); White Blood Count 13.6 K/mm3 (4.4-11.0)
[2018-02-10 04:29] LABS: Differential Indicated SCAN CRITERIA MET; POSITIVE COUNT YES; POSITIVE DIFFERENTIAL NO; POSITIVE MORPHOLOGY YES
[2018-02-10 05:10] LABS: Platelet Estimate ADEQUATE (ADEQ); Platelet Morphology LARGE
[2018-02-10 05:16] LABS: Mucous, Urine 0 SEEN /hpf (<or=2+)
[2018-02-10 05:18] LABS: Color, Urine Yellow (Yellow); Glucose, Dipstick 50 mg/dl (Normal); Ketone-Dipstick 5 mg/dl (Negative); Leukocyte Esterase-Dipstick 500 /ul (Negative); Nitrite-Dipstick Negative (Negative); Occult Blood-Urine 250 /ul (Negative); Protein-Dipstick 100 mg/dl (Negative); Urine Bilirubin Dipstick Negative (Negative); Urine Clarity Cloudy (Clear); Urine Urobilinogen Normal (Normal)
[2018-02-10 05:28] VITALS: BP 134/84; PULSE 78; RESP 20; O2SAT 97
[2018-02-10 05:31] LABS: Squamous Epithelial Cells - UA 25-50 SEEN /hpf (5-10)
[2018-02-10 05:32] LABS: Bacteria 2+ /hpf (None Seen); Red Blood Cells-Urine 10-25 SEEN /hpf (0-5); White Blood Cells 5-10 SEEN /hpf (0-5)
[2018-02-10 05:34] LABS: Amorphous Sediment 2+
[2018-02-10 05:36] LABS: Transitional Epithelial - Ur 0-5 SEEN /hpf (0-5)
[2018-02-10 05:37] LABS: Renal Epithelial Cells 0 SEEN /hpf (0-5)
--- NOTE | 2018-02-10 05:37 | HP.PCM_ITS ---
Problem List (1) Hydronephrosis Status: Chronic Qualifiers: (2) Weakness Status: Chronic (3) Chronic anemia Status: Chronic (4) Hypertension Status: Chronic (5) Hypothyroid Status: Chronic (6) Hyperlipemia Status: Chronic (7) DM type 2 (diabetes mellitus, type 2) Status: Chronic (8) Metastatic adenocarcinoma Status: Chronic History of Present Illness Date of Admission: 02/10/18 Chief Complaint: Weakness The patient is a 67 year old F with a PMH as above who presents from home after being discharge about 12 hours prior. She went home and almost immediately realized that she was too weak. She states that it took her almost 30 minutes to get out of the car and into the house when they got home. The is unable to lift her struggles to help her perform ADLs which she is incapable of performing. She state that she was in bed this evening and had to go to the restroom. Her struggled to help her up and when she got to the bathroom, she was so weak that she slid down onto the floor and her was unable to lift her up back to bed so he called EMS who brought her to the ER. She recently under went a c-scope with biopsy and as well as ureteral stent placement on . She was supposed to have a PET scan on monday with oncology follow-up on monday. 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) CKD (chronic kidney disease) (Chronic) Medical History: Medical History (Last Reviewed 02/05/18 @ 12:29 by Alba Zheng PA-C) CT guided biopsy Left retroperitoneal lymph node biopsy 01/22/18 [facility] Allergies codeine Allergy (Verified 02/04/18 20:46) Other iodine Allergy (Verified 02/04/18 20:46) Other Penicillins Allergy (Verified 02/04/18 20:46) Hives PAPER TAPE Allergy (Uncoded 02/04/18 20:46) Rash Home Medications: Ambulatory Orders Medication Instructions Recorded Amlodipine [Norvasc] 5 mg PO DAILY #30 tab 02/09/18 Ciprofloxacin [Cipro] 250 mg PO BID #12 tab 02/09/18 Docusate Sodium [Colace] 100 mg PO BID capsule 02/09/18 Oxycodone CR [Oxycontin] 20 mg PO Q12H 7 Days #28 tab 02/09/18 Oxycodone [Oxyir] 5 - 10 mg PO Q4H PRN PRN 7 Days 02/09/18 #30 tab Polyethylene Glycol 3350 [Miralax] 17 gm PO DAILY packet 02/09/18 Surgical History: Surgical History (Last Reviewed 02/05/18 @ 12:29 by Alba Zheng PA-C) H/O dilation and curettage Z98.890 Surgical History: - - myomectomy, ARTIFICIAL INSEMINATOR History: No pertinent ARTIFICIAL INSEMINATOR history, - - known pelvic mass Smoking Status: Former smoker Alcohol: None Drugs: None - *Family History Sibling Family History: Family History (Last Reviewed 02/05/18 @ 12:29 by Alba Zheng PA-C) Sister Cancer Father Cancer Grandmother Diabetes History Items: No pertinent history Offspring Family History: Family History (Last Reviewed 02/05/18 @ 12:29 by Alba Zheng PA-C) Sister Cancer Father Cancer Grandmother Diabetes History Items: Cancer - Lymphoma Review of Systems Constitutional: Reports: Weakness. Denies: Chills, Fever HEENT: Denies: Head Aches, Sinus Congestion, Sinus Drainage Cardiovascular: Denies: Chest Pain, Palpitations Respiratory: Denies: Cough, Shortness of breath at rest, Sputum production Gastrointestinal: Reports: Abdominal Pain. Denies: Nausea, Vomiting Genitourinary: Denies: Dysuria Musculoskeletal: Denies: Joint Pain, Joint Tenderness Skin: Denies: Rash, Wounds Neurological: Denies: Numbness, Tingling, Focal weakness Psychiatric: Denies: Anxiety, Depression Hematologic/ Lymphatic: Denies: Easy Bruising, Easy Bleeding VTE Information - Inpt Only VTE Present on Admission: No - Physical Exam General: Alert, Oriented x3, Cooperative, No apparent distress HEENT: Atraumatic, PERRLA, EOMI, Normocephalic Oral: Moist Mucosa Neck: Supple, No JVD Lungs: Clear to auscultation, Normal air movement, No rhonchi, No wheeze, No rales Cardiovascular: Regular rate, Regular Rhythm, Normal S1, Normal S2, No murmurs Abdomen: Soft, Non-Distended, No Hepato-splenomegaly, Tender - mild suprapubic and lower quadrants Extremities: Edema - 2+ pitting edema b/l LE Skin: No rashes, No breakdown Musculoskeletal: No Tenderness to Palpation of Joints or Extremities - Strength is 4/5 throughout Neurological: Neuro grossly intact, Sensory exam intact to light touch and pain Psych/Mental Status: Normal Affect, Appropriate Vital Signs Temp Pulse Resp BP Pulse Ox 97.6 F L 78 20 H 134/84 H 97 02/10/18 02:49 02/10/18 05:28 02/10/18 05:28 02/10/18 05:28 02/10/18 05:28 Oxygen Delivery Method Room Air Weight: 212 lb 11.937 oz Body Mass Index (BMI) 36.5 Finger Stick Blood Glucose 115 Laboratory Tests Past 24 Hrs 02/10/18 02/10/18 02/10/18 03:25 03:50 05:05 WBC 13.6 H RBC 3.66 L Hgb 10.6 L Hct 33.8 L MCV 92.3 MCH 29.0 MCHC 31.4 L RDW 14.1 RDW Differential 47.7 H Plt Count 436 MPV 8.0 Immature Gran % (Auto) 0.200 Neut % (Auto) 81.8 H Lymph % (Auto) 8.2 L [place] % (Auto) 7.5 Eos % (Auto) 2.1 Baso % (Auto) 0.2 Absolute Neuts (auto) 11.1 H Absolute Lymphs (auto) 1.11 Total Counted Not Reportable Platelet Estimate ADEQUATE Plt Morphology Comment LARGE Sodium 140 Potassium 4.6 Chloride 110 H Carbon Dioxide 18.0 L Anion Gap 12 BUN 69 H Creatinine 3.06 H Estim Creat Clear Calc 14.98 Est GFR (MDRD) Af Amer 19 L Est GFR (MDRD) Non-Af 16 L BUN/Creatinine Ratio 22.5 H Glucose 144 H Calcium 8.2 L Urine Color Yellow Urine Clarity Cloudy Urine pH 5.0 Ur Specific [place] 1.020 Urine Protein 100 H Urine Glucose (UA) 50 H Urine Ketones 5 H Urine Occult Blood 250 H Urine Nitrite Negative Urine Bilirubin Negative Urine Urobilinogen Normal Ur Leukocyte Esterase 500 H Urine RBC Pending Urine WBC Pending Ur Squamous Epith Cells Pending Urine Bacteria Pending Urine Mucus Pending Assessment/Plan All Active Problems (Last Reviewed 02/05/18 @ 12:29 by Alba Zheng PA-C) Renal failure (ARF), acute on chronic (Acute) Abscess and cellulitis (Resolved) Back pain (Resolved) Vomiting (Resolved) Abdominal pain (Acute) 1. Generalized weakness and inability to complete ADLs - Will c/s PT/OT as well as case management - IVF@100 as she states that she feels dehydrated - She is currently unable to ambulate without assistance 2. Stage 4 adenocarcinoma of the colon/Pelvic/abdominal pain - CEA is elevated to 418 and her CA125 was 47 - C/w her OXycontin BID and her oxycodone - Bowel regimen with colace and miralax - C-scope with biopsy that demonstrate adenocarcinoma 3. Right Hydronephrosis/CKD4 - Her CKD is worse presumably from the worsening hydro but could also be dehydration - Continue to monitor while on IVF - Stents are inplace, UA consistent with recent instrumentation - c/w cipro 4. DM2 - she does not take anything and her previous A1c was 7.4 - SSI for coverage 5. HTN - will c/w her norvasc daily DVT: Heparin/SCD Diet: Regular Code Visit Inpatient E&M: 18861 Init Hosp L3
[2018-02-10 06:07] VITALS: BP 179/57; PULSE 94; RESP 18; TEMP 36.4; O2SAT 96
[2018-02-10 06:18] VITALS: BMI 36.5
[2018-02-10 06:23] VITALS: BMI 35.6
[2018-02-10] MEDS: Morphine 4 MG/ML Syringe IV (06:38)
[2018-02-10] MEDS: Ondansetron 4 MG/2 ML Vial IV (06:38)
[2018-02-10] MEDS: 0.9% NaCl Peripheral Flush Adult/Peds IV (06:39)
[2018-02-10] MEDS: Heparin Injection (Vial) 5,000 UNIT/ML VIAL 5000 UNIT SC ×3 (06:39→21:50)
[2018-02-10] MEDS: 0.9% Normal Saline 1,000 ML 100 ML IV (06:39)
[2018-02-10 07:01] LABS: Bedside Glucose 135 mg/dL (70-110)
[2018-02-10 09:34] VITALS: BP 160/49; PULSE 88; RESP 18; TEMP 36.8; O2SAT 97
[2018-02-10] MEDS: Docusate Sodium 100 MG Capsule PO ×2 (09:49→21:50)
[2018-02-10] MEDS: Polyethylene Glycol 3350 17 GM PACKET PO (09:49)
[2018-02-10] MEDS: amLODIPine 5 MG Tablet PO (09:49)
[2018-02-10] MEDS: Ciprofloxacin 250 MG Tablet PO ×2 (09:50→21:50)
--- NOTE | 2018-02-10 10:00 | CCHN_ITS ---
Hospitalist Note Patient was seen today, she was placed in observation status early this morning due to deconditioning and weakness, was not able to take care of her at home. Patient understands that she will not receive chemotherapy or treatment for cancer as long she is in a detention, patient understands this. Patient has been encouraged to do as much she can for herself so that she can increase her ADLs so that she may be treated for her cancer. PT and OT will see the patient again today, social work lecturer will need to talk to the patient concerning which senior care facility that she prefers. Nothing will happen this weekend because the insurance contacts are not working during the weekend, on Monday of next week, they will be contacted regarding placement. I assume it will be mid week of next week before she is placed in a senior care facility. I will have to call her oncologist to have her PET scan canceled and her appointment with her oncologist canceled on Monday.
[2018-02-10] MEDS: Insulin Lispro 100 UNIT/ML INSULN.PEN SQ ×3 (11:20→21:55)
[2018-02-10 11:21] LABS: Bedside Glucose 181 mg/dL (70-110)
--- NOTE | 2018-02-10 12:06 | CASEMGMT ---
Social Work Consult: Discharge planning by physician. Chart reviewed. Spoke with patient in room. Patient discharged from hospital yesterday, 02/09/18 and was home for 12 hours before returning to hospital. This social media marketing specialist broaching topic of how things were going at home for the 12 hours. Patient reporting that patient was just too weak and wanted to try things at home but has failed. Patient actively interested in residential placement for strengthening. Patient requesting for referral to be made to the Transitional Care Unit. This social media marketing specialist also noting that patient has a new diagnosis of colon cancer. This social media marketing specialist broached topic of how this is going for patient. Patient taking time to answer question, after some time patient did respond with I'm okay. Patient stating that have smoked all her life and to now have to pay the consequences. Patient wanting to focus more on getting stronger. Patient is planning to have treatment for cancer through [facility] and to have already has first appointment and to now be waiting on insurance approval. Therapy evaluating patient and recommending skilled placement at this time. Patient aware that insurance will need to approve placement in order for patient to transition to skilled services that is covered by insurance. Patient aware that pre-cert will not be able to be started until Monday due to the weekend. Patient reporting to live at home with spouse and that spouse was unable to meet patient needs within the home. Support given. Telephone call to Em [facility]. voicemail left with referral. PLAN: Discharge to TCU pending pre-cert. Sandra CROUCH, STEP DOWN NURSE
[2018-02-10 14:47] VITALS: BP 172/56; PULSE 89; RESP 18; TEMP 36.8; O2SAT 96
[2018-02-10] MEDS: Magnesium Hydroxide 30 ML UDC PO (16:22)
[2018-02-10] MEDS: Mag Hydrox/Al Hydrox/Simeth 30 ML UDC PO (16:22)
[2018-02-10 16:26] LABS: Bedside Glucose 155 mg/dL (70-110)
[2018-02-10 19:41] VITALS: BP 161/67; PULSE 88; RESP 16; TEMP 36.3; O2SAT 98
[2018-02-10] MEDS: Famotidine 20 MG Tablet PO (21:50)
[2018-02-10] MEDS: Menthol/Lanolin/Calamine/Znox 113 GM Tube 1 APPLIC TOPICAL (22:00)
[2018-02-10 22:05] LABS: Bedside Glucose 156 mg/dL (70-110)
[2018-02-11 01:57] VITALS: BP 144/45; PULSE 82; RESP 16; TEMP 36.4; O2SAT 100
[2018-02-11] MEDS: Heparin Injection (Vial) 5,000 UNIT/ML VIAL 5000 UNIT SC ×3 (05:32→22:02)
[2018-02-11 06:21] LABS: Bedside Glucose 117 mg/dL (70-110)
[2018-02-11 08:00] VITALS: BP 162/60; PULSE 85; RESP 18; TEMP 36.8; O2SAT 95
[2018-02-11] MEDS: Polyethylene Glycol 3350 17 GM PACKET PO (08:09)
[2018-02-11] MEDS: Famotidine 20 MG Tablet PO ×2 (08:09→22:01)
[2018-02-11] MEDS: Docusate Sodium 100 MG Capsule PO ×2 (08:09→22:01)
[2018-02-11] MEDS: amLODIPine 5 MG Tablet PO (08:09)
[2018-02-11] MEDS: Ciprofloxacin 250 MG Tablet PO ×2 (10:42→22:01)
[2018-02-11 11:45] LABS: Bedside Glucose 108 mg/dL (70-110)
[2018-02-11] MEDS: oxyCODONE 5 MG Tablet PO ×2 (12:33→20:50)
[2018-02-11 14:51] VITALS: BP 166/64; PULSE 95; RESP 20; TEMP 36.6; O2SAT 95
--- NOTE | 2018-02-11 15:07 | PN_ITS ---
Subjective: Patient was seen and examined today, I had a long discussion with her about the need for her to regain her strength through physical therapy, I encouraged her to work hard at physical therapy or else she would not be able to undergo chemotherapy. There was a time today were nursing felt that she was doing better ambulating with a walker but when physical therapy came up to walk her, she only walked to her doorway and then was unable to walk any further. Arrangements will be made for her to go temporarily to an extended care facility-this may take several days to get approved, today I called Dr. Alvarez's on-call oncology nurse to let her know that the patient would not be able to undergo a PET scan tomorrow. - Physical Exam General: Alert, Oriented x3, Cooperative, No apparent distress, Well developed, Well nourished HEENT: Atraumatic, PERRLA, EOMI, Normocephalic Oral: Moist Mucosa Neck: Supple, Trachea Midline, Thyroid Normal Size and Texture Lungs: Clear to auscultation, Normal air movement, No rhonchi, No wheeze, No rales Cardiovascular: Regular rate, Regular Rhythm, Normal S1, Normal S2, No murmurs, No Ectopic Activity Abdomen: Bowel Sounds Present, Soft, Non Tender Extremities: No edema, Capillary Refill Less than 3 Seconds Skin: No rashes, No breakdown Neurological: Cranial nerves II-XII grossly intact, Neuro grossly intact, Sensory exam intact to light touch and pain, Coordination normal Psych/Mental Status: Appropriate, Flat Affect, Alert and oriented to time, place, person, mood and affect Vital Signs Temp Pulse Resp BP Pulse Ox 97.8 F 95 20 H 166/64 H 95 02/11/18 14:51 02/11/18 14:51 02/11/18 14:51 02/11/18 14:51 02/11/18 14:51 Oxygen Delivery Method Room Air Weight: 95.5 kg Body Mass Index (BMI) 35.6 Finger Stick Blood Glucose 115 Intake and Output for Last 24 Hours 02/09/18 02/10/18 02/11/18 23:59 23:59 23:59 Intake Total 240 / 240 350 / 350 Output Total 250 / 250 400 / 400 Balance -10 / -10 -50 / -50 POC Glucose 02/11/18 02/11/18 02/10/18 11:34 06:17 21:54 POC Glucose 108 117 H 156 H 02/10/18 16:15 POC Glucose 155 H Medical Necessity - Tobacco Use Smoking Status: Former smoker Tobacco Use: Cigarettes Assessment/Plan All Active Problems (Last Reviewed 02/05/18 @ 12:29 by Alba Zheng PA-C) Renal failure (ARF), acute on chronic (Acute) Abscess and cellulitis (Resolved) Back pain (Resolved) Vomiting (Resolved) Abdominal pain (Acute) #1 generalized debility-partially from metastatic adenocarcinoma of the colon and partially secondary to deconditioning-arrangements are being made for patient to go to an extended care facility for short-term rehab, this will delay her treatment of her adenocarcinoma of the colon. Patient understands this and she has been encouraged to participate fully with PT and OT. #2 metastatic adenocarcinoma the colon-patient has seen Dr. Alvarez, the plans for her PET scan are on hold at the present time. #3 chronic kidney disease-stage IV, partially secondary to type 2 diabetes- complicated by hydronephrosis from metastatic adenocarcinoma the colon-again patient had ureteral stents placed several days ago while she was hospitalized previously. #4 type 2 diabetes #5 hypertension #6 hypothyroidism Summary: This 67-year-old white female was diagnosed with metastatic adenocarcinoma of the colon and was hospitalized from 02/04/18 to 02/09/18 due to uncontrolled abdominal pain, during that admission she had ureteral stents placed and she had a diagnostic colonoscopy which removed some polyps 1 of which had adenocarcinoma. Patient was seen in consultation by oncology during that admission, she was to undergo a PET scan on 02/12/18 but she was readmitted to the hospital after discharge on 02/09/18 due to generalized weakness and inability of her to take care of her. We are currently trying to get placement in a [facility] facility for short-term purposes. I believe that the patient's stability is in part due to her unwillingness to participate fully in physical therapy. Code Visit OBSV E&M: 42337 Subsequent observation care L3
[2018-02-11 16:26] LABS: Bedside Glucose 148 mg/dL (70-110)
[2018-02-11 20:30] VITALS: BP 166/57; PULSE 89; RESP 16; TEMP 36.9; O2SAT 96
[2018-02-11 22:15] LABS: Bedside Glucose 145 mg/dL (70-110)
[2018-02-12] MEDS: oxyCODONE 5 MG Tablet PO ×2 (01:26→13:32)
[2018-02-12 02:30] VITALS: BP 158/58; PULSE 79; RESP 16; TEMP 36.6; O2SAT 96
[2018-02-12] MEDS: Heparin Injection (Vial) 5,000 UNIT/ML VIAL 5000 UNIT SC ×3 (05:51→22:07)
[2018-02-12 06:36] LABS: Anion Gap 10 (5-15); BUN 73 mg/dL (7-18); BUN/Creat Ratio 25.5 RATIO (10-20); Calcium,Total 8.5 mg/dL (8.5-10.1); Chloride 111 mmol/L (98-107); Creatinine, Serum 2.86 mg/dL (0.55-1.02); EST Glomerular Filtration Rate 17 mL/min (>60); Est Glom Filt Rate - Afr Amer 21 mL/min (>60); Estimated Creatinine Clearance 16.03 ml/min; Glucose 129 mg/dL (74-106); Potassium 4.8 mmol/L (3.5-5.1); Sodium Level 140 mmol/L (136-145)
[2018-02-12 07:06] LABS: Bedside Glucose 138 mg/dL (70-110)
[2018-02-12 08:18] VITALS: BP 184/76; PULSE 84; RESP 18; TEMP 36.7; O2SAT 97
--- NOTE | 2018-02-12 10:22 | MRI_ITS ---
STUDY: MRI BRAIN WITHOUT CONTRAST REASON FOR EXAM: Female, 67 years old. Weakness, history of colon cancer TECHNIQUE: Standardized multiplanar fat and water weighted pulse sequences were obtained. COMPARISON: None. FINDINGS: Moderate atrophy and mild periventricular white matter ischemic changes.. Old lacunar infarct in the right basal ganglia. Normal thalami. There is no extra-axial fluid accumulation. Chronic ischemic changes within the winnie. Normal flow voids within the major intracranial circulation suggesting patency by spin echo criteria. Partial empty sella deformity. Normal, infundibular stalk, optic chiasm and hypothalamus. Normal tectal plate and pineal gland. Normal midbrain, and medulla. Normal cerebellum. Normal basal cisterns. Normal bilateral temporal bones. Normal bilateral internal auditory canals. No demonstrated orbital abnormality, within the constraints of a routine brain study. Mild mucosal thickening in the right ethmoid air cells Normal calvarium and skull base. Normal visualized soft tissue structures. Normal visualized upper cervical spine. MRI/Brain without Contrast IMPRESSION: Mild periventricular white matter ischemic changes without evidence for acute infarct. Chronic ischemic changes within the winnie and old right lacunar infarct. No definitive evidence for metastatic disease however limited repeat study with contrast would be helpful for further evaluation Electronically Signed: Jamie Richardson MD at 16:54 EDT , Service support ,
[2018-02-12] MEDS: amLODIPine 5 MG Tablet PO (10:55)
[2018-02-12] MEDS: Famotidine 20 MG Tablet PO ×2 (10:55→22:07)
[2018-02-12] MEDS: Insulin Lispro 100 UNIT/ML INSULN.PEN SQ (10:55)
[2018-02-12] MEDS: Ciprofloxacin 250 MG Tablet PO ×2 (10:55→22:07)
[2018-02-12] MEDS: Polyethylene Glycol 3350 17 GM PACKET PO (10:55)
[2018-02-12] MEDS: Docusate Sodium 100 MG Capsule PO ×2 (10:55→22:07)
--- NOTE | 2018-02-12 11:32 | CASEMGMT ---
Social Work Note BETTE placed a call to Em in TCU to determine if TCU is able to accept pt. SW received call from Cassandra who states if pt receives chemotherapy TCU wouldn't be able to accept but if pt is going to receive radiation therapy TCU is able to accept. SW in to speak with pt and pt's present in room. SW updated pt and pt's of this. Pt states that she is unsure at this time what her treatment is going to be as she needs to get tests to determine course of treatment. SW explained that if pt gets chemotherapy TCU won't be able to accept but if pt gets radiation treatment TCU will be able to accept. SW states that this worker will follow up with TCU to determine if they are able to accept pt. Pt states understanding. BETTE spoke with Cassandra and informed her that pt is unsure at this time what her course of treatment is going to be. Cassandra states that Em would say no then to pt as it is still unclear what pt's cancer treatment is going to be. SW updated pt on this and provided pt with list of in network facilities. Pt asked if she can just go home from [facility]. SW explained that it is her right to go home but reminded pt that she was just discharged from [facility] on Monday and came in the next day due to weakness and inability to care for self at home. Pt states that she needs to speak with her before making a decision. SW provided pt with list of in network facilities and informed pt that this worker will check back with pt later today to determine plans. Pt states understanding. Plan: ОЛЬГА Castañeda NAMED ACCOUNT EXECUTIVE, COMPONENT LAB TECH
[2018-02-12 11:56] LABS: Bedside Glucose 156 mg/dL (70-110)
--- NOTE | 2018-02-12 13:22 | CASEMGMT ---
MARIA G BANEGAS spoke with re: dc planning to SNF. voiced confusion on list of [facility] facilities being in [place], [place] and [place]. MARIA G BANEGAS explained jessica's [facility] status is determined by the insurance company. Discussed care needs of and which facility would be most accessible for him driving. stated that his brother lives in [place] and he would prefer that over [place]. MARIA G BANEAGS called Maria Elena AMOS while speaking with to notify that he prefers referral be sent to [facility] [place]. Katie MCCONNELLN RN ACM
--- NOTE | 2018-02-12 13:53 | PCM.PN.HOSP ---
Subjective: Pain is much better controlled today and she has a little bit of an appetite Objective: General: Alert, Oriented x3, Cooperative, No apparent distress HEENT: Atraumatic, EOMI, Normocephalic Oral: Moist Mucosa Neck: Supple, No JVD Lungs: Clear to auscultation, Normal air movement, No rhonchi, No wheeze, No rales Cardiovascular: Regular rate, Regular Rhythm, Normal S1, Normal S2, No murmurs Abdomen: Soft, Non-Distended, No Hepato-splenomegaly, Tender - mild suprapubic and lower quadrants Extremities: Edema - 2+ pitting edema b/l LE Skin: No rashes, No breakdown Musculoskeletal: No Tenderness to Palpation of Joints or Extremities - Strength is 4/5 throughout Neurological: Neuro grossly intact, Sensory exam intact to light touch and pain Psych/Mental Status: Normal Affect, Appropriate Vitals/I&O's: Vital Signs Temp Pulse Resp BP Pulse Ox 98.1 F 84 18 184/76 H 97 02/12/18 08:18 02/12/18 08:18 02/12/18 08:18 02/12/18 08:18 02/12/18 08:18 Oxygen Delivery Method Room Air Weight: 210 lb 8.663 oz Body Mass Index (BMI) 35.6 Finger Stick Blood Glucose 115 Intake and Output for Last 24 Hours 02/10/18 02/11/18 02/12/18 23:59 23:59 23:59 Intake Total 240 / 240 800 / 800 640 / 640 Output Total 250 / 250 400 / 400 200 / 200 Balance -10 / -10 400 / 400 440 / 440 Laboratory Results 02/11/18 16:14: POC Glucose 148 H 02/11/18 22:07: POC Glucose 145 H 02/12/18 06:00: Sodium 140, Potassium 4.8, Chloride 111 H, Carbon Dioxide 19.0 L, Anion Gap 10, BUN 73 H, Creatinine 2.86 H, Estim Creat Clear Calc 16.03, Est GFR (MDRD) Af Amer 21 L, Est GFR (MDRD) Non-Af 17 L, BUN/Creatinine Ratio 25.5 H, Glucose 129 H, Calcium 8.5 02/12/18 06:59: POC Glucose 138 H 02/12/18 10:53: POC Glucose 156 H Current Medications Al Hydroxide/Mg Hydroxide (Mylanta Ii) 30 ml PO Q6H PRN PRN PRN Reason: DYSPEPSIA Last Admin: 02/10/18 16:22 Dose: 30 ml Amlodipine Besylate (Norvasc) 5 mg PO DAILY [facility] Last Admin: 02/12/18 10:55 Dose: 5 mg Calamine/Phenol (Calmoseptine Ointment) 1 applic TOPICAL BID PRN; Protocol PRN Reason: Diaper Rash Last Admin: 02/10/18 22:00 Dose: 1 dose Ciprofloxacin HCl (Cipro) 250 mg PO BID [facility] Last Admin: 02/12/18 10:55 Dose: 250 mg Dextrose (D50w Syringe) 0 gm IV X1 PRN; Protocol PRN Reason: Hypoglycemia Docusate Sodium (Colace) 100 mg PO BID [facility] Last Admin: 02/12/18 10:55 Dose: 100 mg Famotidine (Pepcid) 20 mg PO BID [facility] Last Admin: 02/12/18 10:55 Dose: 20 mg Glucagon () 1 mg IM .X1 PRN PRN Reason: Hypoglycemia Heparin Sodium (Porcine) (Heparin Na) 5,000 unit SC Q8 [facility] Last Admin: 02/12/18 13:32 Dose: 5,000 unit Insulin Human Lispro (Humalog Kwikpen (Bkc)) 0 unit SQ ACHS [facility]; Protocol Last Admin: 02/12/18 10:55 Dose: 1 units Magnesium Hydroxide (Milk Of Magnesia) 30 ml PO DAILY PRN PRN PRN Reason: Constipation Last Admin: 02/10/18 16:22 Dose: 30 ml Morphine Sulfate () 4 mg IV Q4H PRN PRN PRN Reason: SEVERE PAIN (6-10/10) Last Admin: 02/10/18 06:38 Dose: 4 mg Ondansetron HCl (Zofran) 4 mg IV Q6H PRN PRN PRN Reason: NAUSEA Last Admin: 02/10/18 06:38 Dose: 4 mg Oxycodone HCl (Oxyir) 5 - 10 mg PO Q4H PRN PRN PRN Reason: SEVERE PAIN (6-10/10) Last Admin: 02/12/18 13:32 Dose: 5 mg Oxycodone HCl (Oxycontin) 20 mg PO Q12H [facility] Last Admin: 02/12/18 06:04 Dose: 20 mg Polyethylene Glycol (Miralax) 17 gm PO DAILY [facility] Last Admin: 02/12/18 10:55 Dose: 17 gm Sodium Chloride () 5 - 30 ml IV UD PRN PRN Reason: SALINE FLUSH Last Admin: 02/10/18 06:39 Dose: 10 ml Medical Necessity - Tobacco Use Smoking Status: Former smoker Tobacco Use: Cigarettes Assessment/Plan All Active Problems (Last Reviewed 02/05/18 @ 12:29 by Alba Zheng PA-C) Renal failure (ARF), acute on chronic (Acute) Abscess and cellulitis (Resolved) Back pain (Resolved) Vomiting (Resolved) Abdominal pain (Acute) 1. Generalized weakness and inability to complete ADLs - Pt/OT rec SNF - She is currently unable to ambulate without assistance 2. Stage 4 adenocarcinoma of the colon/Pelvic/abdominal pain - CEA is elevated to 418 and her CA125 was 47 - C/w her OXycontin BID and her oxycodone - Bowel regimen with colace and miralax - C-scope with biopsy that demonstrate adenocarcinoma - MRI brain w/o contrast today to eval for mets 3. Right Hydronephrosis/CKD4 - Her CKD is worse presumably from the worsening hydro but could also be dehydration - Stents are inplace, - c/w cipro for the stents - Creatinine is imprved 4. DM2 - she does not take anything and her previous A1c was 7.4 - SSI for coverage 5. HTN - will c/w her norvasc daily DVT: Heparin/SCD Diet: Regular Code Visit Inpatient E&M: 53850 Subs Hosp L2
--- NOTE | 2018-02-12 13:58 | PN_ITS ---
Subjective: Pain is much better controlled today and she has a little bit of an appetite Objective: General: Alert, Oriented x3, Cooperative, No apparent distress HEENT: Atraumatic, EOMI, Normocephalic Oral: Moist Mucosa Neck: Supple, No JVD Lungs: Clear to auscultation, Normal air movement, No rhonchi, No wheeze, No rales Cardiovascular: Regular rate, Regular Rhythm, Normal S1, Normal S2, No murmurs Abdomen: Soft, Non-Distended, No Hepato-splenomegaly, Tender - mild suprapubic and lower quadrants Extremities: Edema - 2+ pitting edema b/l LE Skin: No rashes, No breakdown Musculoskeletal: No Tenderness to Palpation of Joints or Extremities - Strength is 4/5 throughout Neurological: Neuro grossly intact, Sensory exam intact to light touch and pain Psych/Mental Status: Normal Affect, Appropriate Vitals/I&O's: Vital Signs Temp Pulse Resp BP Pulse Ox 98.1 F 84 18 184/76 H 97 02/12/18 08:18 02/12/18 08:18 02/12/18 08:18 02/12/18 08:18 02/12/18 08:18 Oxygen Delivery Method Room Air Weight: 210 lb 8.663 oz Body Mass Index (BMI) 35.6 Finger Stick Blood Glucose 115 Intake and Output for Last 24 Hours 02/10/18 02/11/18 02/12/18 23:59 23:59 23:59 Intake Total 240 / 240 800 / 800 640 / 640 Output Total 250 / 250 400 / 400 200 / 200 Balance -10 / -10 400 / 400 440 / 440 Laboratory Results 02/11/18 16:14: POC Glucose 148 H 02/11/18 22:07: POC Glucose 145 H 02/12/18 06:00: Sodium 140, Potassium 4.8, Chloride 111 H, Carbon Dioxide 19.0 L , Anion Gap 10, BUN 73 H, Creatinine 2.86 H, Estim Creat Clear Calc 16.03, Est GFR (MDRD) Af Amer 21 L, Est GFR (MDRD) Non-Af 17 L, BUN/Creatinine Ratio 25.5 H , Glucose 129 H, Calcium 8.5 02/12/18 06:59: POC Glucose 138 H 02/12/18 10:53: POC Glucose 156 H Current Medications Al Hydroxide/Mg Hydroxide (Mylanta Ii) 30 ml PO Q6H PRN PRN PRN Reason: DYSPEPSIA Last Admin: 02/10/18 16:22 Dose: 30 ml Amlodipine Besylate (Norvasc) 5 mg PO DAILY [facility] Last Admin: 02/12/18 10:55 Dose: 5 mg Calamine/Phenol (Calmoseptine Ointment) 1 applic TOPICAL BID PRN; Protocol PRN Reason: Diaper Rash Last Admin: 02/10/18 22:00 Dose: 1 dose Ciprofloxacin HCl (Cipro) 250 mg PO BID [facility] Last Admin: 02/12/18 10:55 Dose: 250 mg Dextrose (D50w Syringe) 0 gm IV X1 PRN; Protocol PRN Reason: Hypoglycemia Docusate Sodium (Colace) 100 mg PO BID [facility] Last Admin: 02/12/18 10:55 Dose: 100 mg Famotidine (Pepcid) 20 mg PO BID [facility] Last Admin: 02/12/18 10:55 Dose: 20 mg Glucagon () 1 mg IM .X1 PRN PRN Reason: Hypoglycemia Heparin Sodium (Porcine) (Heparin Na) 5,000 unit SC Q8 [facility] Last Admin: 02/12/18 13:32 Dose: 5,000 unit Insulin Human Lispro (Humalog Kwikpen (Bkc)) 0 unit SQ ACHS [facility]; Protocol Last Admin: 02/12/18 10:55 Dose: 1 units Magnesium Hydroxide (Milk Of Magnesia) 30 ml PO DAILY PRN PRN PRN Reason: Constipation Last Admin: 02/10/18 16:22 Dose: 30 ml Morphine Sulfate () 4 mg IV Q4H PRN PRN PRN Reason: SEVERE PAIN (6-10/10) Last Admin: 02/10/18 06:38 Dose: 4 mg Ondansetron HCl (Zofran) 4 mg IV Q6H PRN PRN PRN Reason: NAUSEA Last Admin: 02/10/18 06:38 Dose: 4 mg Oxycodone HCl (Oxyir) 5 - 10 mg PO Q4H PRN PRN PRN Reason: SEVERE PAIN (6-10/10) Last Admin: 02/12/18 13:32 Dose: 5 mg Oxycodone HCl (Oxycontin) 20 mg PO Q12H [facility] Last Admin: 02/12/18 06:04 Dose: 20 mg Polyethylene Glycol (Miralax) 17 gm PO DAILY [facility] Last Admin: 02/12/18 10:55 Dose: 17 gm Sodium Chloride () 5 - 30 ml IV UD PRN PRN Reason: SALINE FLUSH Last Admin: 02/10/18 06:39 Dose: 10 ml Medical Necessity - Tobacco Use Smoking Status: Former smoker Tobacco Use: Cigarettes Assessment/Plan All Active Problems (Last Reviewed 02/05/18 @ 12:29 by Alba Zheng PA-C) Renal failure (ARF), acute on chronic (Acute) Abscess and cellulitis (Resolved) Back pain (Resolved) Vomiting (Resolved) Abdominal pain (Acute) 1. Generalized weakness and inability to complete ADLs - Pt/OT rec SNF - She is currently unable to ambulate without assistance 2. Stage 4 adenocarcinoma of the colon/Pelvic/abdominal pain - CEA is elevated to 418 and her CA125 was 47 - C/w her OXycontin BID and her oxycodone - Bowel regimen with colace and miralax - C-scope with biopsy that demonstrate adenocarcinoma - MRI brain w/o contrast today to eval for mets 3. Right Hydronephrosis/CKD4 - Her CKD is worse presumably from the worsening hydro but could also be dehydration - Stents are inplace, - c/w cipro for the stents - Creatinine is imprved 4. DM2 - she does not take anything and her previous A1c was 7.4 - SSI for coverage 5. HTN - will c/w her norvasc daily DVT: Heparin/SCD Diet: Regular Code Visit Inpatient E&M: 90808 Subs Hosp L2
[2018-02-12 14:20] VITALS: BP 186/73; PULSE 76; RESP 18; TEMP 36.6; O2SAT 99
--- NOTE | 2018-02-12 14:31 | CASEMGMT ---
Social Work Note RN BASSAM Brady updated this worker that pt and pt's would like a referral sent to [facility]. BETTE placed a calll to [facility] and spoke with Oliva in admissions. Oliva provided fax number [phone]. BETTE faxed referral to [facility]. Plan: [facility] pending acceptance and pre-cert Karly Castañeda BOWLING BALL GRADER, PROGRAM PROJECT ANALYST
[2018-02-12 17:36] LABS: Bedside Glucose 139 mg/dL (70-110)
[2018-02-12 20:05] VITALS: BP 160/69; PULSE 88; RESP 18; TEMP 36.6; O2SAT 97
[2018-02-12] MEDS: Mag Hydrox/Al Hydrox/Simeth 30 ML UDC PO (22:15)
[2018-02-12 22:25] LABS: Bedside Glucose 128 mg/dL (70-110)
[2018-02-13 02:05] VITALS: BP 155/66; PULSE 82; RESP 20; TEMP 36.6; O2SAT 95
[2018-02-13] MEDS: Ondansetron 4 MG/2 ML Vial IV (06:33)
[2018-02-13] MEDS: Heparin Injection (Vial) 5,000 UNIT/ML VIAL 5000 UNIT SC ×2 (06:33→13:15)
[2018-02-13] MEDS: 0.9% NaCl Peripheral Flush Adult/Peds IV (06:34)
[2018-02-13 07:01] LABS: Bedside Glucose 126 mg/dL (70-110)
--- NOTE | 2018-02-13 08:26 | PCM.PN.HOSP ---
Subjective: Pain is well controlled now and she is tolerating a diet. Objective: General: Alert, Oriented x3, Cooperative, No apparent distress HEENT: Atraumatic, EOMI, Normocephalic Oral: Moist Mucosa Neck: Supple, No JVD Lungs: Clear to auscultation, Normal air movement, No rhonchi, No wheeze, No rales Cardiovascular: Regular rate, Regular Rhythm, Normal S1, Normal S2, No murmurs Abdomen: Soft, Non-Distended, No Hepato-splenomegaly, Tender - mild suprapubic and lower quadrants Extremities: Edema - 2+ pitting edema b/l LE Skin: No rashes, No breakdown Musculoskeletal: No Tenderness to Palpation of Joints or Extremities - Strength is 4/5 throughout Neurological: Neuro grossly intact, Sensory exam intact to light touch and pain Psych/Mental Status: Normal Affect, Appropriate Vitals/I&O's: Vital Signs Temp Pulse Resp BP Pulse Ox 98 F 82 20 H 155/66 H 95 02/13/18 02:05 02/13/18 02:05 02/13/18 02:05 02/13/18 02:05 02/13/18 02:05 Oxygen Delivery Method Room Air Weight: 210 lb 8.663 oz Body Mass Index (BMI) 35.6 Finger Stick Blood Glucose 115 Intake and Output for Last 24 Hours 02/11/18 02/12/18 02/13/18 23:59 23:59 23:59 Intake Total 800 / 800 890 / 890 400 / 400 Output Total 400 / 400 200 / 200 Balance 400 / 400 690 / 690 400 / 400 Laboratory Results 02/12/18 10:53: POC Glucose 156 H 02/12/18 17:31: POC Glucose 139 H 02/12/18 22:05: POC Glucose 128 H 02/13/18 06:31: POC Glucose 126 H Current Medications Al Hydroxide/Mg Hydroxide (Mylanta Ii) 30 ml PO Q6H PRN PRN PRN Reason: DYSPEPSIA Last Admin: 02/12/18 22:15 Dose: 30 ml Amlodipine Besylate (Norvasc) 5 mg PO DAILY [facility] Last Admin: 02/12/18 10:55 Dose: 5 mg Calamine/Phenol (Calmoseptine Ointment) 1 applic TOPICAL BID PRN; Protocol PRN Reason: Diaper Rash Last Admin: 02/10/18 22:00 Dose: 1 dose Ciprofloxacin HCl (Cipro) 250 mg PO BID [facility] Last Admin: 02/12/18 22:07 Dose: 250 mg Dextrose (D50w Syringe) 0 gm IV X1 PRN; Protocol PRN Reason: Hypoglycemia Docusate Sodium (Colace) 100 mg PO BID [facility] Last Admin: 02/12/18 22:07 Dose: 100 mg Famotidine (Pepcid) 20 mg PO BID [facility] Last Admin: 02/12/18 22:07 Dose: 20 mg Glucagon () 1 mg IM .X1 PRN PRN Reason: Hypoglycemia Heparin Sodium (Porcine) (Heparin Na) 5,000 unit SC Q8 [facility] Last Admin: 02/13/18 06:33 Dose: 5,000 unit Insulin Human Lispro (Humalog Kwikpen (Bkc)) 0 unit SQ ACHS [facility]; Protocol Last Admin: 02/13/18 06:32 Dose: Not Given Magnesium Hydroxide (Milk Of Magnesia) 30 ml PO DAILY PRN PRN PRN Reason: Constipation Last Admin: 02/10/18 16:22 Dose: 30 ml Morphine Sulfate () 4 mg IV Q4H PRN PRN PRN Reason: SEVERE PAIN (6-10/10) Last Admin: 02/10/18 06:38 Dose: 4 mg Ondansetron HCl (Zofran) 4 mg IV Q6H PRN PRN PRN Reason: NAUSEA Last Admin: 02/13/18 06:33 Dose: 4 mg Oxycodone HCl (Oxyir) 5 - 10 mg PO Q4H PRN PRN PRN Reason: SEVERE PAIN (6-10/10) Last Admin: 02/12/18 13:32 Dose: 5 mg Oxycodone HCl (Oxycontin) 20 mg PO Q12H [facility] Last Admin: 02/13/18 06:34 Dose: 20 mg Polyethylene Glycol (Miralax) 17 gm PO DAILY [facility] Last Admin: 02/12/18 10:55 Dose: 17 gm Sodium Chloride () 5 - 30 ml IV UD PRN PRN Reason: SALINE FLUSH Last Admin: 02/13/18 06:34 Dose: 10 ml Medical Necessity - Tobacco Use Smoking Status: Former smoker Tobacco Use: Cigarettes Assessment/Plan All Active Problems (Last Reviewed 02/05/18 @ 12:29 by Alba Zheng PA-C) Renal failure (ARF), acute on chronic (Acute) Abscess and cellulitis (Resolved) Back pain (Resolved) Vomiting (Resolved) Abdominal pain (Acute) 1. Generalized weakness and inability to complete ADLs - Pt/OT rec SNF, placement pending - She is currently unable to ambulate without assistance 2. 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 Right Hydronephrosis/CKD4 - Her CKD is worse presumably from the worsening hydro but could also be dehydration - Stents are inplace, - c/w cipro for the stents - Creatinine is improved 4. DM2 - she does not take anything and her previous A1c was 7.4 - SSI for coverage 5. HTN - will c/w her norvasc daily DVT: Heparin/SCD Diet: Regular
--- NOTE | 2018-02-13 08:34 | PN_ITS ---
Subjective: Pain is well controlled now and she is tolerating a diet. Objective: General: Alert, Oriented x3, Cooperative, No apparent distress HEENT: Atraumatic, EOMI, Normocephalic Oral: Moist Mucosa Neck: Supple, No JVD Lungs: Clear to auscultation, Normal air movement, No rhonchi, No wheeze, No rales Cardiovascular: Regular rate, Regular Rhythm, Normal S1, Normal S2, No murmurs Abdomen: Soft, Non-Distended, No Hepato-splenomegaly, Tender - mild suprapubic and lower quadrants Extremities: Edema - 2+ pitting edema b/l LE Skin: No rashes, No breakdown Musculoskeletal: No Tenderness to Palpation of Joints or Extremities - Strength is 4/5 throughout Neurological: Neuro grossly intact, Sensory exam intact to light touch and pain Psych/Mental Status: Normal Affect, Appropriate Vitals/I&O's: Vital Signs Temp Pulse Resp BP Pulse Ox 98 F 82 20 H 155/66 H 95 02/13/18 02:05 02/13/18 02:05 02/13/18 02:05 02/13/18 02:05 02/13/18 02:05 Oxygen Delivery Method Room Air Weight: 210 lb 8.663 oz Body Mass Index (BMI) 35.6 Finger Stick Blood Glucose 115 Intake and Output for Last 24 Hours 02/11/18 02/12/18 02/13/18 23:59 23:59 23:59 Intake Total 800 / 800 890 / 890 400 / 400 Output Total 400 / 400 200 / 200 Balance 400 / 400 690 / 690 400 / 400 Laboratory Results 02/12/18 10:53: POC Glucose 156 H 02/12/18 17:31: POC Glucose 139 H 02/12/18 22:05: POC Glucose 128 H 02/13/18 06:31: POC Glucose 126 H Current Medications Al Hydroxide/Mg Hydroxide (Mylanta Ii) 30 ml PO Q6H PRN PRN PRN Reason: DYSPEPSIA Last Admin: 02/12/18 22:15 Dose: 30 ml Amlodipine Besylate (Norvasc) 5 mg PO DAILY ALFREDO Last Admin: 02/12/18 10:55 Dose: 5 mg Calamine/Phenol (Calmoseptine Ointment) 1 applic TOPICAL BID PRN; Protocol PRN Reason: Diaper Rash Last Admin: 02/10/18 22:00 Dose: 1 dose Ciprofloxacin HCl (Cipro) 250 mg PO BID [facility] Last Admin: 02/12/18 22:07 Dose: 250 mg Dextrose (D50w Syringe) 0 gm IV X1 PRN; Protocol PRN Reason: Hypoglycemia Docusate Sodium (Colace) 100 mg PO BID [facility] Last Admin: 02/12/18 22:07 Dose: 100 mg Famotidine (Pepcid) 20 mg PO BID [facility] Last Admin: 02/12/18 22:07 Dose: 20 mg Glucagon () 1 mg IM .X1 PRN PRN Reason: Hypoglycemia Heparin Sodium (Porcine) (Heparin Na) 5,000 unit SC Q8 [facility] Last Admin: 02/13/18 06:33 Dose: 5,000 unit Insulin Human Lispro (Humalog Kwikpen (Bkc)) 0 unit SQ ACHS [facility]; Protocol Last Admin: 02/13/18 06:32 Dose: Not Given Magnesium Hydroxide (Milk Of Magnesia) 30 ml PO DAILY PRN PRN PRN Reason: Constipation Last Admin: 02/10/18 16:22 Dose: 30 ml Morphine Sulfate () 4 mg IV Q4H PRN PRN PRN Reason: SEVERE PAIN (6-10/10) Last Admin: 02/10/18 06:38 Dose: 4 mg Ondansetron HCl (Zofran) 4 mg IV Q6H PRN PRN PRN Reason: NAUSEA Last Admin: 02/13/18 06:33 Dose: 4 mg Oxycodone HCl (Oxyir) 5 - 10 mg PO Q4H PRN PRN PRN Reason: SEVERE PAIN (6-10/10) Last Admin: 02/12/18 13:32 Dose: 5 mg Oxycodone HCl (Oxycontin) 20 mg PO Q12H [facility] Last Admin: 02/13/18 06:34 Dose: 20 mg Polyethylene Glycol (Miralax) 17 gm PO DAILY [facility] Last Admin: 02/12/18 10:55 Dose: 17 gm Sodium Chloride () 5 - 30 ml IV UD PRN PRN Reason: SALINE FLUSH Last Admin: 02/13/18 06:34 Dose: 10 ml Medical Necessity - Tobacco Use Smoking Status: Former smoker Tobacco Use: Cigarettes Assessment/Plan All Active Problems (Last Reviewed 02/05/18 @ 12:29 by Alba Zheng PA-C) Renal failure (ARF), acute on chronic (Acute) Abscess and cellulitis (Resolved) Back pain (Resolved) Vomiting (Resolved) Abdominal pain (Acute) 1. Generalized weakness and inability to complete ADLs - Pt/OT rec SNF, placement pending - She is currently unable to ambulate without assistance 2. 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 Right Hydronephrosis/CKD4 - Her CKD is worse presumably from the worsening hydro but could also be dehydration - Stents are inplace, - c/w cipro for the stents - Creatinine is improved 4. DM2 - she does not take anything and her previous A1c was 7.4 - SSI for coverage 5. HTN - will c/w her norvasc daily DVT: Heparin/SCD Diet: Regular
[2018-02-13 08:46] VITALS: BP 165/67; PULSE 89; RESP 18; TEMP 36.5; O2SAT 97
[2018-02-13] MEDS: Docusate Sodium 100 MG Capsule PO (08:49)
[2018-02-13] MEDS: Ciprofloxacin 250 MG Tablet PO (08:49)
[2018-02-13] MEDS: Polyethylene Glycol 3350 17 GM PACKET PO (08:49)
[2018-02-13] MEDS: Famotidine 20 MG Tablet PO (08:50)
[2018-02-13] MEDS: amLODIPine 5 MG Tablet PO (08:50)
--- NOTE | 2018-02-13 09:29 | CASEMGMT ---
Social Work Note SW received message from Oliva at [facility] stating that she is able to accept pt and pre-cert has been submitted. BETTE faxed updated clinicals to [facility]. Plan: [facility] pending pre-cert Karly Castañeda [employer] LABOURER, [employer] HEAD INSPECTOR AND ADJUSTER
--- NOTE | 2018-02-13 11:39 | CASEMGMT ---
Social Work Note SW updated pt and pt's on acceptance to [facility]. SW explained pre-cert will need to be obtained. Pt and pt's state understanding and that they once pt is able to discharge they would like transportation to be set up via cot. SW explained that ambulance company will submit it to insurance to determine if insurance will pay for transportation but unfortunately this SW won't know if insurance will pay for cot until pt is discharged and the ambulance company bills pt's insurance. Pt and pt's state understanding. Plan: Discharge to [facility] pending pre-cert Karly Castañeda DIGITAL ADVISOR, LAUNDRY ATTENDANT
[2018-02-13 12:10] LABS: Bedside Glucose 166 mg/dL (70-110)
[2018-02-13] MEDS: Insulin Lispro 100 UNIT/ML INSULN.PEN SQ (13:15)
--- NOTE | 2018-02-13 13:44 | PCM.TXEXTCAR ---
- Diet 02/10/18 05:27 Diet: Regular Diet Food consistency:: Regular Liquid Consistency:: Regular/Thin Type of Dietary Supplement:: Ensure Clear Is pt able to select menu?: Yes Diet Comments: pt adamently refusing glucerna- likes red colored clear ensure - Wound(s) Coccyx Wound Type: Pressure Injury - Suggestions for Active Care Change Position every (hours): 2 - Therapies Physical Therapy: Eval and Treat Occupational Therapy: Eval and Treat - Problem/Diagnosis (1) Hydronephrosis Status: Chronic Current Visit: No (2) Weakness Status: Chronic Current Visit: Yes (3) Chronic anemia Status: Chronic Current Visit: Yes (4) Hypertension Status: Chronic Current Visit: No (5) Hypothyroid Status: Chronic Current Visit: No (6) Hyperlipemia Status: Chronic Current Visit: No (7) DM type 2 (diabetes mellitus, type 2) Status: Chronic Current Visit: No (8) Metastatic adenocarcinoma Status: Chronic Current Visit: Yes - Allergies/Procedures Done in Hospital Allergies/Adverse Reactions: Allergies codeine Allergy (Verified 02/10/18 06:31) Dizziness/passing out iodine Allergy (Verified 02/10/18 06:31) Anaphylaxis Penicillins Allergy (Verified 02/04/18 20:46) Hives shellfish derived Allergy (Verified 02/10/18 06:31) Anaphylaxis PAPER TAPE Allergy (Uncoded 02/04/18 20:46) Rash - Type of Care/Length of Stay Estimated LOS: Convalescent Care Less Than 30 days Type of Care Needed: Skilled Rehab Potential: Good Prognosis: Good - Additional Orders/Day of Discharge Day of Discharge: 02/13/18 - Dietary and Speech Recommendations Dietitian Recommendations/Changes: Continue regular diet d/t poor oral intake. - Follow Up Care Primary Care Physician: Nii Mc Chi, MD [Primary Care Provider] - Please follow up with your Primary Care Physician in: in 3-5 days after SNF DC
--- NOTE | 2018-02-13 13:56 | DS.PCM_ITS ---
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 Chronic ischemic changes within the winnie and old right lacunar infarct. No definitive evidence for metastatic disease however limited repeat study with contrast would be helpful for further evaluation Consults: None Operations: None Procedures: None Summary of Care Provided: HPI: The patient is a 67 year old F with a PMH as above who presents from home after being discharge about 12 hours prior. She went home and almost immediately realized that she was too weak. She states that it took her almost 30 minutes to get out of the car and into the house when they got home. The is unable to lift her struggles to help her perform ADLs which she is incapable of performing. She state that she was in bed this evening and had to go to the rest room. Her struggled to help her up and when she got to the bathroom, she was so weak that she slid down onto the floor and her was unable to lift her up back to bed so he called EMS who brought her to the ER. She recently under went a c-scope with biopsy and as well as ureteral stent placement on . She was supposed to have a PET scan on monday with oncology follow-up on monday. Hospital Course: 1. Weakness/FTT/Inability to perform ADLs - She had been discharged on 02/09 from the hospital and returned that day because she was unable to ambulate at home and was unable to perfomr her ADLs, and her was unable to help. She returned for PT/OT evaluation which determined that she would require SNF placement and the referral was made. While inpatient an MRI was obtained to r/o mets as the possible cause of her weakness, which it did. On a good note, we were able to get her pain controlled with the Oxycontin and the oxycodone prn. 2. Hydronephrosis/Stage 4 colon adenocarcinoma - She does have b/l ureteral stents that had been placed during her previous admission. She has continued to have some burning with urination and her UA was indeterminant since she has the stents. Since her prior DC she has been continued on her Cipro 250 mg BID PO which she will need for another 3 days. She will need to have an outpatient PET scan while at the SNF and she will need to f/u with her oncologist to decide on treatment and therapeutic goals 3. Her home medications were continued where appropriate. Home Medications: Medications to take at Discharge Amlodipine [Norvasc] 5 mg PO DAILY #30 tab 02/09/18 Docusate Sodium [Colace] 100 mg PO BID capsule 02/09/18 Polyethylene Glycol 3350 [Miralax] 17 gm PO DAILY packet 02/09/18 Ciprofloxacin [Cipro] 250 mg PO BID #6 tab 02/13/18 Oxycodone CR [Oxycontin] 20 mg PO Q12H 7 Days #28 tab 02/13/18 Oxycodone [Oxyir] 5 - 10 mg PO Q4H PRN PRN 7 Days #30 tab 02/13/18 Following Prescrptions Were Given to Patient: Oxycodone [Oxyir] 5 - 10 mg PO Q4H PRN PRN 7 Days #30 tab PRN Reason: Severe Pain (6-10/10) Oxycodone CR [Oxycontin] 20 mg PO Q12H 7 Days #28 tab Primary Care Physician: Nii Mc Chi, MD [Primary Care Provider] - Please follow up with your Primary Care Physician in: in 3-5 days after SNF DC Disposition: Residential facility Minutes spent on discharge:: 35 Patient Condition:: Good Medical Necessity - Tobacco Use Smoking Status: Former smoker Tobacco Use: Cigarettes Meaningful Use Info Meaningful Use Diagnoses (Choose all that apply): None applicable Code Visit OBSV E&M: 68581 Observation care discharge
[2018-02-13 15:23] VITALS: BP 156/82; PULSE 82; RESP 18; TEMP 36.7; O2SAT 97
--- NOTE | 2018-02-13 15:50 | NURSING ---
report called to [facility]
--- NOTE | 2018-02-13 16:33 | CASEMGMT ---
Social Work Note SW received call from Oliva at [facility] stating she obtained pre-cert and pt is able to discharge today. BETTE faxed completed discharge paperwork to Oliva at [facility] including transfer to extended care facility, signed medication list and any scripts. Originals in SNF folder and copy on pt's chart. BETTE completed PAS/RR in [facility]ENS. Original in SNF folder and copy on pt's chart. Per previous conversation with pt and family, pt and family would like transportation set up via cot. BETTE placed a call to [facility] and set up transportation via cot for 3:30pm. Transportation form on SNF folder and copy on pt's chart. BETTE updated Oliva Mccabe at [facility] and updated pt and pt's family of transportation time. Plan: Pt to discharge to [facility] with [facility] transporting via cot at 3:30pm. Karly Castañeda HOP WEIGHER, CASINO MANAGER
== END 2018-02-13 16:15 | disposition skilled nursing facility (03) ==
LOC: ED 04:52 → MS2 05:17
PROVIDERS: Internal Medicine; Admitting Provider Family Medicine; Emergency Provider Emergency Medicine; Family Provider Family Medicine Geriatric Medicine; PCP Family Medicine Geriatric Medicine; Visit Provider Family Medicine
DX: R62.7 Adult failure to thrive (principal); R53.1 Weakness; N13.30 Unspecified hydronephrosis; C18.9 Malignant neoplasm of colon, unspecified; E11.22 Type 2 diabetes mellitus with diabetic chronic kidney disease; N18.4 Chronic kidney disease, stage 4 (severe); I12.9 Hypertensive chronic kidney disease with stage 1 through stage 4 chronic kidney disease, or unspecified chronic kidney disease; E03.9 Hypothyroidism, unspecified; Z87.891 Personal history of nicotine dependence; Z79.899 Other long term (current) drug therapy; D64.9 Anemia, unspecified; E78.5 Hyperlipidemia, unspecified; G89.29 Other chronic pain; M54.9 Dorsalgia, unspecified; R30.0 Dysuria
CPT/HCPCS: 36415; 70551; 80048; 81001; 82962; 85025; 93005; 96361; 96372; 96374; 96375; 96376; 97110; 97116; 97162; 97166; 97530; 97802; 99218; 99285; 99406; J7030; A4216; G0378; G8978; G8979; G8987; G8988; J2405